=== PATIENT | male | born 1970 | race Hispanic/Latino ===

== ENCOUNTER 2019-02-04 17:34 | Inpatient (IN) | payer OTHER, SELFPAY ==
[~2019-02-04 17:34] MED LIST: Heparin 1,000 UNITS/ML VIAL ONE
[2019-02-04] MEDS ORDERED: Acetaminophen 500 MG TAB ONE (18:14)
[2019-02-04] MEDS ORDERED: Piperacillin/Tazobactam 4.5 GM VIAL ONE (18:14)
[2019-02-04 18:19] LABS: Hemoglobin 12.2 g/dL (14.0-18.0); Mean Corpuscular HGB CONC 33.2 g/dL (32.0-36.0); Mean Corpuscular Volume 84.4 fL (78.0-98.0); Mean Platelet Volume 9.7 fL (7.4-10.4); Platelet Count 311 thou/uL (130-400); RBC Distribution Width 12.2 % (11.5-14.5); Red Blood Cell (RBC) Count 4.35 mill/uL (4.70-6.10); White Blood Cell (WBC) Count 14.3 thou/uL (4.8-10.8)
--- NOTE | 2019-02-04 18:20 | RAD ---
Exam: XR Foot Lt 3 View STANDARD HISTORY: Diabetic foot ulcer with purulent drainage. Headache and chills. COMPARISON: None FINDINGS: There is amputation of the left great toe at the level of the proximal phalanx. There is also amputat ion of the second toe at the level of the metatarsal head. There is a soft tissue defect and subcutaneous emphysema seen involving the lateral subcutaneous soft tissues adjacent to the proximal aspect of the left fifth metatarsal. No adjacent osseous destruction is appreciated. No lytic or sclerotic osseous lesions are seen. There is subcutaneous soft tissue swelling about the midfoot and forefoot dorsally as well as at the plantar aspect of the forefoot. No acute fracture, dislocation, or other acute osseous abnormality is identified. IMPRESSION: 1. Soft tissue defect and subcutaneous emphysema involving the lateral subcutaneous soft tissues at t he level of the proximal fifth metatarsal. No underlying osseous destruction is seen to suggest osteomyelitis based on radiographic evaluation. However, if there is strong clinical concern for oste omyelitis, MRI left foot is recommended for further evaluation. 2. Amputation of the left great toe and second toe.
--- NOTE | 2019-02-04 18:20 | RAD ---
EXAM: CHEST ONE VIEW HISTORY: Diabetic foot ulceration with purulent drainage. COMPARISON: None FINDINGS: The cardiac silhouette and pulmonary vasculature is within normal limits. The lungs are clear. The os seous structures are intact. IMPRESSION: No acute cardiopulmonary process.
[2019-02-04 18:42] LABS: Band 8 % (5-11); Eosinophils 6 % (0-10); Lymphocytes 6 % (21-51); MDiff Complete? YES; Monocytes 4 % (0-10); Neutrophil 68 % (42-75); Platelet Morphology Comment Appears Adequate; Polychromasia SLIGHT = 2-3 cells (100X) (0-2/hpf); Reactive Lymphocytes 8 % (0-10)
[2019-02-04 18:43] LABS: ALT (SGPT) Less than 7 U/L (8-55); AST (SGOT) 10 U/L (5-34); Albumin 3.6 g/dL (3.5-5.0); Alkaline Phosphatase 77 U/L (40-110); Anion Gap 17 mmol/L (10-20); BUN (Urea Nitrogen) 13 mg/dL (8.9-20.6); Bilirubin, Total 0.6 mg/dL (0.2-1.2); Calc. Creatinine Clearance 0 mL/min (70-130); Calcium 9.2 mg/dL (7.8-10.44); Carbon Dioxide 24 mmol/L (22-29); Chloride 96 mmol/L (98-107); Estimated GFR-MDRD 82; Globulin 4.8 g/dL (2.4-3.5); Glucose 344 mg/dL (70-105); Potassium 4.6 mmol/L (3.5-5.1); Protein, Total 8.4 g/dL (6.0-8.3); Sodium 132 mmol/L (136-145)
[2019-02-04] MEDS ORDERED: Acetaminophen 325 MG TAB PO PRN (19:01)
[2019-02-04] MEDS ORDERED: Senokot S 8.6-50 MG TAB PO PRN (19:01)
[2019-02-04] MEDS ORDERED: Dextrose 50% Abboject 50 ML SYRINGE SLOW IVP PRN (19:01)
[2019-02-04] MEDS ORDERED: HumaLOG 300 UNITS/3 ML VIAL SC PRN (19:01)
[2019-02-04] MEDS ORDERED: Dextrose 5% in Water 1,000 ML IV PRN (19:01)
[2019-02-04] MEDS ORDERED: Bisacodyl 10 MG SUPP PR PRN (19:01)
[2019-02-04] MEDS ORDERED: Guaifenesin DM 100-10/5 ML UDCUP PO PRN (19:01)
[2019-02-04 19:29] LABS: Bacteria/HPF None Seen HPF (None Seen); Bilirubin Negative (Negative); Blood, Urine Trace (Negative); Clarity Clear (Clear); Glucose, Urine (Dipstick) >=1000 mg/dL (Negative); Leukocyte 250 Leu/uL (Negative); Nitrite Negative (Negative); Protein, Urine (Dipstick) 30 mg/dL (Neg-Trace); Squamous Epithelial 0-3 HPF (0-3); Urobilinogen Normal mg/dL (Less than 2)
--- NOTE | 2019-02-04 19:37 | HP ---
REASON FOR ADMISSION: Left fifth metatarsal base ulcer, likely osteomyelitis. HISTORY OF PRESENTING ILLNESS: The patient says he developed a blister on the left base of fifth metatarsal area, a blister 2 months back. He was in fact hospitalized for a week then. He was given IV antibiotics and has had wound care as well and was sent home on oral antibiotics. The patient says the ulcer never healed and in fact from last 4 to 5 days, there is increased drainage of yellowish purulent material with pressure sensation in the foot. The patient has had 2 other toes amputated on the same foot before. He has had temperature of 103 degrees on arrival here. No chest pain or palpitation. No cough or expectoration. No urinary symptoms including frequency or urgency. PAST MEDICAL AND SURGICAL HISTORY: htn, diabetes mellitus type 2, dyslipidemia, and obesity, left first great toe amputated in [place] 2 years back, and left second toe amputation done in [facility] a year back. CURRENT MEDICATIONS: 1. Metformin 1000 mg twice daily. 2. Unknown insulin 45 units subcu twice daily. ALLERGIES: NO KNOWN DRUG ALLERGIES. PERSONAL HISTORY: Does not abuse alcohol or drugs. No history of smoking. 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 FAMILY HISTORY: Mother at the age of 78 years, she has had history of COPD and was a smoker. Father in his 80s, has history of . The patient is not and has no children. CODE STATUS: Full. Power of assistant district attorney is his friend, who knows him for last 8 or 9 years. Her name is Radha Kaminski. REVIEW OF SYSTEMS: CONSTITUTIONAL: Negative for weight loss or gain, ability to conduct usual activities. SKIN: Negative for rash, itching. EYES: Negative for double vision, pain. ENT/MOUTH: Negative for nose bleeding, neck stiffness, pain, tenderness. CARDIOVASCULAR: Negative for palpitations, dyspnea on exertion, orthopnea. RESPIRATORY: Negative for shortness of breath, wheezing, cough, hemoptysis, fever or night sweats. GASTROINTESTINAL: Negative for poor appetite, abdominal pain, heartburn, nausea , vomiting, constipation, or diarrhea. GENITOURINARY: Negative for urgency, frequency, dysuria, nocturia. MUSCULOSKELETAL: Negative for pain, swelling. NEUROLOGIC/PSYCHIATRIC: Negative for anxiety, depression. ALLERGY/IMMUNOLOGIC: Negative for skin rash, bleeding tendency. PHYSICAL EXAMINATION: GENERAL: The patient is a 48-year-old male, who is currently not in any acute distress. VITAL SIGNS: Blood pressure 132/70, pulse 100 per minute, respiratory rate 18 per minute, temperature 103 degrees Fahrenheit, and saturating 97% on room air. NECK: Supple. No elevated JVD. HEENT: Eyes; extraocular muscles intact. Pupils reacting to light. Oral cavity, mucous membranes are dry. No exudates or congestion. CARDIOVASCULAR SYSTEM: S1 and S2 heard. Regular rhythm. RESPIRATORY SYSTEM: Air entry 1+ bilateral. No rales or rhonchi. ABDOMEN: Soft. Bowel sounds heard. No tenderness, rigidity, or guarding. EXTREMITIES: Left foot is in general swollen up to the ankle. He has a big ulcer measuring 4 x 6 cm around the base of left fifth metatarsal on the lateral and plantar aspect. Has a yellowish purulent material oozing from it. Likely, I can palpate his metatarsal bone. No calf tenderness. VASCULAR SYSTEM: Peripheral pulses 1+ bilateral. No ischemic ulcerations or gangrene. CENTRAL NERVOUS SYSTEM: No gross focal deficits noted. The patient is alert, awake, and oriented well. PSYCHIATRIC SYSTEM: The patient's mood is euthymic. No hallucinations or delusions. LABORATORY DATA: White count of 14, hemoglobin and hematocrit of 12 and 36, platelet count 311, MCV is 84 with 68% neutrophils. Sodium 132, serum bicarb 24 , BUN 13, creatinine 0.9, glucose 344. AST, ALT, and alkaline phosphatase within normal limits. CRP 15. Albumin 3.6. Chest x-ray done shows no acute cardiopulmonary abnormality. Left foot three-view done shows soft tissue defect and subcutaneous emphysema involving the lateral subcutaneous soft tissues at the level of the proximal fifth metatarsal. No osseous destruction was seen. CLINICAL IMPRESSION AND PLAN: The patient will be admitted to medical floor for sepsis, nonhealing left fifth metatarsal area ulcer from last 2-1/2 months with likely osteomyelitis. The patient might also have Charcot joints in his left foot. We will obtain MRI of the left foot. Consultation with Dr. Ramesh will be requested. We will keep him n.p.o. after midnight. He will be on ceftriaxone and vancomycin. We will place him on Lantus 30 units subcu twice daily along with moderate Humalog sliding scale. The patient likely is noncompliant with his medication. He does not recall the name of his insulin, although he knows he takes 45 units twice daily. He has had 2 prior amputations from last 2 years of left great toe and second toe. He is also obese and likely has peripheral neuropathy. We will obtain lipid profile in the morning and HbA1c as well. We will continue to closely monitor him on medical floor. Job ID: [id number] [facility]
[2019-02-04] MEDS ORDERED: Vancomycin HCl 1 GM in Premix Bag 1 BAG IVPB SCH (21:00)
[2019-02-04] MEDS: Insulin Glargine 30 UNITS in Pre-Filled Syringe 1 EACH SC SCH (22:29)
[2019-02-04] MEDS: cefTRIAXone\\ROCEPHIN 2 GM in Sodium Chloride 0.9% 100 ML IVPB SCH (22:30)
[2019-02-04] MEDS: Famotidine 20 MG TAB PO SCH (22:31)
[2019-02-04] MEDS: Sodium Chloride 0.9% 1,000 ML IV SCH (22:31)
[2019-02-04 22:44] VITALS: BMI 42.5
[2019-02-04] MEDS ORDERED: HYDROcodone/Acetaminophen 5/325 mg Tablet PO PRN (22:53)
[2019-02-05] MEDS ORDERED: Ketorolac Tromethamine 30 MG/ML VIAL IVP PRN (00:10)
[2019-02-05] MEDS: Sodium Chloride 0.9% 1,000 ML IV SCH (01:54)
[2019-02-05] MEDS: HumaLOG 300 UNITS/3 ML VIAL SC PRN ×2 (05:29→17:47)
[2019-02-05 05:39] LABS: #Eosinphils 0.3 thou/uL (0.0-0.7); #Lymphocytes 1.8 thou/uL (1.20-3.40); #Monocytes 1.1 thou/uL (0.11-0.59); %Basophils 0.3 % (0.0-1.0); %Eosinophils 2.4 % (0.0-10.0); %Lymphocytes 13.8 % (21.0-51.0); %Monocytes 8.2 % (0.0-10.0); %Neutrophils 75.3 % (42.0-75.0); Hemoglobin 11.4 g/dL (14.0-18.0); Mean Corpuscular HGB CONC 32.7 g/dL (32.0-36.0); Mean Corpuscular Hemoglobin 27.6 pg (27.0-31.0); Mean Corpuscular Volume 84.7 fL (78.0-98.0); Mean Platelet Volume 9.5 fL (7.4-10.4); Platelet Count 266 thou/uL (130-400); RBC Distribution Width 12.2 % (11.5-14.5); Red Blood Cell (RBC) Count 4.11 mill/uL (4.70-6.10); White Blood Cell (WBC) Count 13.3 thou/uL (4.8-10.8)
[2019-02-05 05:46] LABS: Hemoglobin A1c 13.4 % (4.0-6.0)
[2019-02-05 06:13] LABS: Anion Gap 13 mmol/L (10-20); BUN (Urea Nitrogen) 13 mg/dL (8.9-20.6); Calc. Creatinine Clearance 226 mL/min (70-130); Calcium 8.4 mg/dL (7.8-10.44); Carbon Dioxide 23 mmol/L (22-29); Cardiac Risk 6.4 (Less than 4.5); Chloride 102 mmol/L (98-107); Cholesterol 140 mg/dl (< 200 Desired); Estimated GFR-MDRD Greater than 90; Glucose 317 mg/dL (70-105); HDL Cholesterol 22 mg/dL (>60 Neg Risk); LDL Cholesterol, Calculated 99 mg/dL; Potassium 4.2 mmol/L (3.5-5.1); Sodium 134 mmol/L (136-145); Triglycerides 94 mg/dL (Less than 150)
[2019-02-05] MEDS: Famotidine 20 MG TAB PO SCH ×2 (08:53→20:39)
[2019-02-05] MEDS: Enoxaparin Sodium 40 MG/0.4 ML SYRINGE SC SCH (08:54)
[2019-02-05] MEDS: Insulin Glargine 30 UNITS in Pre-Filled Syringe 1 EACH SC SCH ×2 (08:54→20:38)
[2019-02-05] MEDS ORDERED: FLU VACC QS2019-20(6MOS UP)/PF 60 MCG/0.5 ML SYRINGE IM ONE (09:00)
[2019-02-05] MEDS ORDERED: Magnevist 469MG/ML 20 ML VIAL ONE (09:44)
[2019-02-05] MEDS ORDERED: PROPOFOL 200 MG/20 ML VIAL ONE (10:58)
[2019-02-05] MEDS ORDERED: ePHEDrine/0.9% NaCl/PF SYRINGE 50 mg/10 ml ONE (10:58)
[2019-02-05] MEDS ORDERED: Lidocaine 1% PF 5 ML VIAL ONE (10:58)
[2019-02-05] MEDS ORDERED: PHENYLEPHRINE-NS 100 MCG/ML 10 ML SYRINGE ONE (10:58)
[2019-02-05] MEDS ORDERED: Ondansetron PF 4 MG/2 ML Vial ONE (10:58)
[2019-02-05] MEDS ORDERED: traMADol HCl 50 MG TAB PO PRN ×2 (11:00)
[2019-02-05] MEDS ORDERED: Ibuprofen 600 MG TAB PO PRN (11:00)
--- NOTE | 2019-02-05 12:09 | CON ---
DATE OF CONSULTATION: 02/05/2019 HISTORY OF PRESENT ILLNESS: Desmond Cerda is a 48-year-old male, [employer] inventory associate and driver, who apparently has had a left foot diabetic wound cared for by Wound [facility]. He reported to the emergency room and was admitted on 02/04/2019. X-rays revealed soft tissue changes, but no definite osteomyelitis. He has had prior amputations of left first and second toes performed and they are well healed. One toe was amputated in [place] and the other amputated in [place]. He has been placed on intravenous antibiotics, vancomycin and ceftriaxone. The patient is a vuz-itbxejn-bjbfzyinw diabetic. Glucose of 298 this morning. Hemoglobin A1c 13.4. ALLERGIES: NONE. SOCIAL HISTORY: Tobacco, none. Alcohol, none. MEDICATIONS: At home, metformin 750 b.i.d., metoprolol 100 daily, losartan, Cozaar 50 mg daily, atorvastatin 20 mg daily, amlodipine daily, vancomycin and cefepime in the hospital. PAST SURGICAL HISTORY: Amputation of left great toe and second toe, 1 amputation was performed at [place] and the other in [place] years ago. Wounds were healed. Otherwise, no other medical problems. PHYSICAL EXAMINATION: VITAL SIGNS: Height 6 feet tall, weight 313 pounds, 42 BMI, temperature 98.9, pulse 76, blood pressure 136/80. HEENT: Unremarkable. LUNGS: Clear to auscultation. CARDIAC: Regular rate and rhythm without murmur or gallop. ABDOMEN: Soft, obese, nontender. EXTREMITIES: Palpable femoral, popliteal, and pedal pulses. Previous amputation of the left first and second toes. Wounds well healed. Lateral left foot over his mid to proximal fifth metatarsal, there is open wound. It is foul smelling with necrotic tissue. Cultures of the foot have been obtained and gram-negative rods obtained. There are inflammatory changes towards the dorsum of the foot across the midline. LABORATORY DATA: Sodium 134, potassium 4.2, BUN 13, creatinine 0.82, GFR 90. White count 13 and hemoglobin 11. ASSESSMENT/PLAN: 1. Diabetic infection, left foot. We would recommend surgical debridement and indicated procedures. He understands risks and benefits, and consents. 2. Morbid obesity. 3. Diabetes mellitus. 4. Metabolic syndrome. Job ID: [id number]
[2019-02-05] MEDS ORDERED: Fentanyl 100 MCG/2 ML VIAL ONE (13:11)
--- NOTE | 2019-02-05 13:52 | PDOC.HOSPP ---
- Subjective Encounter Date: 02/05/19 Encounter Time: 09:50 Subjective: feels better, no pain, is npo for debridement - Objective Vital Signs & Weight: Vital Signs (12 hours) Temp Pulse Resp BP BP Pulse Ox 02/05/19 11:00 99.2 F 83 16 151/89 H 93 L 02/05/19 08:58 93 L 02/05/19 07:29 98.9 F 76 18 136/80 93 L 02/05/19 04:08 98.8 F 79 16 141/84 H 97 Weight Weight 313 lb 4.8 oz Result Diagrams: 02/05/19 05:10 02/05/19 05:10 Additional Labs: Accuchecks 02/05/19 02/05/19 12:31 04:15 POC Glucose 269 H 298 H Hospitalist ROS - Medication Medications: Active Medications Generic Name Dose Route Start Last Admin Trade Name Freq PRN Reason Stop Dose Admin Enoxaparin Sodium 40 mg 02/05/19 09:00 02/05/19 08:54 Lovenox SC Not Given 0900 ORLIN Famotidine 20 mg 02/04/19 21:00 02/05/19 08:53 Pepcid PO 20 mg BID ORLIN Administration Ceftriaxone Sodium 2 gm/ 100 mls @ 200 mls/hr 02/04/19 20:00 02/04/19 22:30 Sodium Chloride IVPB 100 mls 2000 ORLIN Administration Insulin Glargine 30 units/ 0.3 mls @ 0 mls/hr 02/04/19 21:00 02/05/19 08:54 Miscellaneous Medication SC Not Given BID ORLIN Vancomycin HCl 2 gm/ Sodium 500 mls @ 250 mls/hr 02/04/19 23:59 02/05/19 08: 52 Chloride IVPB 500 mls 0800,1600,2359 ORLIN Administration Insulin Human Lispro 0 units 02/04/19 19:01 02/05/19 05:29 Humalog SC 6 unit .MODERATE SLIDING SC PRN Administration Moderate Correctional Scale - Exam General Appearance: NAD, awake alert Eye: PERRL, anicteric sclera ENT: no oropharyngeal lesions, moist mucosa Neck: supple, no JVD Heart: RRR, no murmur Respiratory: no wheezes, no rales Gastrointestinal: soft, non-tender, non-distended, normal bowel sounds Extremities: 1+ LE edema Extremities - other findings: left foot in dressing Neurological: cranial nerve grossly intact, no focal deficits Psychiatric: normal affect, A&O x 3 Hosp A/P (1) Diabetic ulcer of left foot Code(s): E11.621 - TYPE 2 DIABETES MELLITUS WITH FOOT ULCER; L97.529 - NON- PRESSURE CHRONIC ULCER OTH PRT LEFT FOOT W UNSP SEVERITY Status: Acute Qualifiers: Diabetic foot ulcer location: midfoot Diabetes mellitus type: type 2 Non- pressure ulcer stage: with bone involvement without evidence of necrosis Qualified Code(s): E11.621 - Type 2 diabetes mellitus with foot ulcer; L97.426 - Non-pressure chronic ulcer of left heel and midfoot with bone involvement without evidence of necrosis (2) Sepsis Code(s): A41.9 - SEPSIS, UNSPECIFIED ORGANISM Status: Acute Qualifiers: Sepsis type: sepsis due to unspecified organism (3) HTN (hypertension) Code(s): I10 - ESSENTIAL (PRIMARY) HYPERTENSION Status: Chronic Qualifiers: Hypertension type: essential hypertension Qualified Code(s): I10 - Essential (primary) hypertension (4) DM (diabetes mellitus), type 2, uncontrolled Code(s): E11.65 - TYPE 2 DIABETES MELLITUS WITH HYPERGLYCEMIA Status: Chronic Qualifiers: Glycemic state: with hyperglycemia Qualified Code(s): E11.65 - Type 2 diabetes mellitus with hyperglycemia (5) Obesity Code(s): E66.9 - OBESITY, UNSPECIFIED Status: Chronic Qualifiers: Obesity classification: adult class 3 (BMI >= 40) Body mass index: BMI 40.0 -44.9 - Plan on vanc and ceftriaxone for debridement today continue lantus 30 bid, metformin bid, lopressor and cozaar wound care hemostable dietary consultation
[2019-02-05] MEDS: Acetaminophen 500 MG TAB PO PRN (16:17)
--- NOTE | 2019-02-05 19:40 | OP ---
DATE OF PROCEDURE: 02/05/2019 PREOPERATIVE DIAGNOSES: Diabetes mellitus type 2, obesity, previous amputations of left first and second toes currently extensive diabetic infection with necrotic skin, subcutaneous tissue, muscle, fascia, and the lateral left foot near the proximal 5th metatarsal with undermining 6 cm plantar, medial and 3 cm plantar distal. POSTOPERATIVE DIAGNOSES: Diabetes mellitus type 2, obesity, previous amputations of left first and second toes currently extensive diabetic infection with necrotic skin, subcutaneous tissue, muscle, fascia, and the lateral left foot near the proximal 5th metatarsal with undermining 6 cm plantar, medial and 3 cm plantar distal. PROCEDURE PERFORMED: Sharp excisional resectional 10 blade debridement of skin, subcutaneous tissue, fascia, muscle, tendon with pulse irrigation (previously cultured), excellent blood supply. The lateral edge of the 5th metatarsal noted to be exposed. Wound Care arrived to place a wound VAC. Long-term prognosis is poor for this neuropathic diabetic ulcer with infection, extensive. ANESTHESIA: General LMA. DESCRIPTION OF PROCEDURE: The patient was taken to the operating room where under general LMA anesthesia, the left lower extremity was prepared with ChloraPrep and draped in routine fashion. He had abundant amount of necrotic foul-smelling gangrenous skin, subcutaneous tissue, fascia, muscle debrided sharply laterally, left foot proximally. This extended plantar proximal for about 6-8 cm beneath the calcaneus. This extended distally beneath the 5th metatarsal, plantar into the foot distally for another 3 cm. Extensive debridement undertaken. Hemostasis gained with cautery. There was excellent bleeding otherwise. All necrotic tissue was removed. No evidence of PAD. Wound pulse irrigated with 2.5 L of saline solution, then wound care team arrived to place wound VAC. The patient tolerated the procedure well. Job ID: [id number]
[2019-02-05] MEDS: Metoprolol Tartrate 25 MG TAB PO SCH (20:38)
[2019-02-05] MEDS: metFORMIN 500 MG TAB PO SCH (20:39)
[2019-02-05] MEDS: cefTRIAXone\\ROCEPHIN 2 GM in Sodium Chloride 0.9% 100 ML IVPB SCH (20:39)
[2019-02-05 23:19] LABS: Vancomycin, Trough 24.3 ug/mL
[2019-02-05] MEDS: Vancomycin HCl 1.75 GM in Sodium Chloride 0.9% 500 ML IVPB SCH (23:42)
--- NOTE | 2019-02-06 08:29 | MRI ---
MRI LEFT MID FOOT AND PROXIMAL FOREFOOT WITH AND WITHOUT IV CONTRAST: DATE: 02/05/2019. PROVIDED CLINICAL HISTORY: Diabetic ulcer. FINDINGS: There is cutaneous deficiency and prominent subcutaneous adipose tissue signal alteration superficial to the lateral aspects of the base of the 5th metatarsal compatible with the provided clinical histo ry of a diabetic wound. There is diminished signal intensity on T1 weighted sequences and increased signal intensity on fluid -sensitive sequences involving the immediately subjacent lateral 5th metatarsal base. There is signa l alteration on fluid sensitive sequences involving the remainder of the 5th metatarsal rather diffus keena sparring only the neck and head. The postcontrast images demonstrate associated contrast enhance ment throughout the 5th metatarsal sparring only the head. There is no evidence for a rim-enhancing fluid collection to suggest abscess. There is no significan t regional tenosynovial fluid. There is no regional joint effusion evident. Signal alteration invol ving the intrinsic foot musculature typical for diabetic patients without focal abnormality to sugges t infectious myositis. There is nonenhancement of the skin and subcutaneous adipose layer I the raven on of the wound compatible with devitalized tissue. Alignment appears anatomic. There is focal thickening involving the flexor hallucis longus tendon in its course subjacent to the 1st metatarsal that may reflect partial tearing or tendinosis. The dorsa l extensor and plantar flexor tendons appear otherwise intact. IMPRESSION: Findings compatible with osteomyelitis involving the 5th metatarsal as described. POS: OFF
[2019-02-06] MEDS ORDERED: Losartan 25 MG TAB PO SCH (09:00)
[2019-02-06] MEDS: metFORMIN 500 MG TAB PO SCH ×2 (09:25→17:28)
[2019-02-06] MEDS: Atorvastatin Calcium 20 MG TAB PO SCH (09:26)
[2019-02-06] MEDS: Famotidine 20 MG TAB PO SCH ×2 (09:26→19:23)
[2019-02-06] MEDS: Vancomycin HCl 1.75 GM in Sodium Chloride 0.9% 500 ML IVPB SCH ×2 (09:27→17:15)
[2019-02-06] MEDS: Metoprolol Tartrate 25 MG TAB PO SCH ×2 (09:27→19:23)
[2019-02-06] MEDS: Enoxaparin Sodium 40 MG/0.4 ML SYRINGE SC SCH (09:31)
[2019-02-06] MEDS: Insulin Glargine 30 UNITS in Pre-Filled Syringe 1 EACH SC SCH ×2 (09:31→19:24)
--- NOTE | 2019-02-06 11:33 | PRG ---
DATE OF SERVICE: 02/06/2019 Desmond Cerda is doing well today. He has a VAC on his foot. He has been afebrile overnight. His pain is well controlled. I used the outboard motorboat operator service to explain to him in detail operative findings and recommendations that he be on antibiotics for prolonged period of time. I have asked Dr. Chandler to see him to guide antibiotic therapy as he might need intravenous antibiotics as an outpatient, and I have asked the human services case manager to arrange home wound VAC outpatient arrangements at [facility]. Anticipate he will be able to be discharged home later in the week. The patient had an MRI scan of his left foot yesterday revealing findings consistent with osteomyelitis involving the fifth metatarsal . There were no obvious erosions. This was not resected. We will await Dr. Chandler' input. At this point, I do not think he needs resection of the fifth metatarsal, but may need prolonged intravenous antibiotics. We will await cultures and Dr. Chandler' input. Job ID: [id number]
--- NOTE | 2019-02-06 16:43 | PDOC.HOSPP ---
- Subjective Encounter Date: 02/06/19 Encounter Time: 10:15 Subjective: feels better, no pain in his foot has not been amb per surg adv - Objective Vital Signs & Weight: Vital Signs (12 hours) Pulse Ox 02/06/19 08:00 96 Weight Admit Weight 313 lb 4.8 oz Weight 313 lb 4.8 oz I&O: 02/05/19 02/06/19 02/07/19 06:59 06:59 06:59 Intake Total 1800 Output Total 1250 Balance 550 Result Diagrams: 02/05/19 05:10 02/05/19 05:10 Additional Labs: Accuchecks 02/06/19 02/06/19 02/05/19 11:37 04:26 19:33 POC Glucose 235 H 192 H 264 H Hospitalist ROS - Medication Medications: Active Medications Generic Name Dose Route Start Last Admin Trade Name Freq PRN Reason Stop Dose Admin Acetaminophen 1,000 mg 02/05/19 11:00 02/05/19 16:17 Tylenol PO 1,000 mg Q6H PRN Administration Moderate to Severe Pain (6-10) Atorvastatin Calcium 20 mg 02/06/19 09:00 02/06/19 09:26 Lipitor PO 20 mg DAILY ORLIN Administration Enoxaparin Sodium 40 mg 02/05/19 09:00 02/06/19 09:31 Lovenox SC 40 mg 0900 ORLIN Administration Famotidine 20 mg 02/04/19 21:00 02/06/19 09:26 Pepcid PO 20 mg BID ORLIN Administration Ceftriaxone Sodium 2 gm/ 100 mls @ 200 mls/hr 02/04/19 20:00 02/05/19 20:39 Sodium Chloride IVPB 100 mls 2000 ORLIN Administration Insulin Glargine 30 units/ 0.3 mls @ 0 mls/hr 02/04/19 21:00 02/06/19 09:31 Miscellaneous Medication SC 0.3 mls BID ORLIN Administration Vancomycin HCl 1.75 gm/ Sodium 500 mls @ 250 mls/hr 02/05/19 23:59 02/06/19 09:27 Chloride IVPB 500 mls 0800,1600,2359 ORLIN Administration Insulin Human Lispro 0 units 02/04/19 19:01 02/05/19 17:47 Humalog SC 4 unit .MODERATE SLIDING SC PRN Administration Moderate Correctional Scale Metoprolol Tartrate 25 mg 02/05/19 21:00 02/06/19 09:27 Lopressor PO Not Given BID ORLIN - Exam General Appearance: awake alert Eye: PERRL, anicteric sclera ENT: no oropharyngeal lesions, moist mucosa Neck: supple, no JVD Heart: RRR, no murmur Respiratory: no wheezes, no rales Gastrointestinal: soft, non-tender, non-distended, normal bowel sounds Extremities - other findings: left foot in wound vac Neurological: cranial nerve grossly intact, no focal deficits Psychiatric: normal affect, A&O x 3 Hosp A/P (1) Diabetic ulcer of left foot Code(s): E11.621 - TYPE 2 DIABETES MELLITUS WITH FOOT ULCER; L97.529 - NON- PRESSURE CHRONIC ULCER OTH PRT LEFT FOOT W UNSP SEVERITY Status: Acute Qualifiers: Diabetic foot ulcer location: midfoot Diabetes mellitus type: type 2 Non- pressure ulcer stage: with bone involvement without evidence of necrosis Qualified Code(s): E11.621 - Type 2 diabetes mellitus with foot ulcer; L97.426 - Non-pressure chronic ulcer of left heel and midfoot with bone involvement without evidence of necrosis (2) Sepsis Code(s): A41.9 - SEPSIS, UNSPECIFIED ORGANISM Status: Resolved Qualifiers: Sepsis type: sepsis due to unspecified organism (3) HTN (hypertension) Code(s): I10 - ESSENTIAL (PRIMARY) HYPERTENSION Status: Chronic Qualifiers: Hypertension type: essential hypertension Qualified Code(s): I10 - Essential (primary) hypertension (4) DM (diabetes mellitus), type 2, uncontrolled Code(s): E11.65 - TYPE 2 DIABETES MELLITUS WITH HYPERGLYCEMIA Status: Chronic Qualifiers: Glycemic state: with hyperglycemia Qualified Code(s): E11.65 - Type 2 diabetes mellitus with hyperglycemia (5) Obesity Code(s): E66.9 - OBESITY, UNSPECIFIED Status: Chronic Qualifiers: Obesity classification: adult class 3 (BMI >= 40) Body mass index: BMI 40.0 -44.9 - Plan on vanc and ceftriaxone had debridement 02/05 continue lantus 30 bid, metformin 1g bid, lopressor and cozaar down to 25mg daily, add glipizide 5mg daily wound care, will need outpt wound vac 1/2 blood cs likely contamination (is -ve for staph aureus, strep), await opinion MRI showed findings of osteo, for likely prolonged iv antibiotics? hemostable dietary consultation
[2019-02-06] MEDS: Acetaminophen 500 MG TAB PO PRN (19:24)
[2019-02-06] MEDS: cefTRIAXone\\ROCEPHIN 2 GM in Sodium Chloride 0.9% 100 ML IVPB SCH (19:25)
[2019-02-06 23:13] LABS: Vancomycin, Trough 25.9 ug/mL
[2019-02-07] MEDS: HumaLOG 300 UNITS/3 ML VIAL SC PRN (05:36)
[2019-02-07] MEDS ORDERED: Vancomycin 1.5 GRAM/300 ML BAG 1.5 GM in Premix Bag 1 BAG IVPB SCH (06:00)
[2019-02-07 07:27] LABS: #Eosinphils 0.4 thou/uL (0.0-0.7); #Monocytes 0.9 thou/uL (0.11-0.59); #Neutrophils 7.1 thou/uL (1.40-6.50); %Basophils 0.5 % (0.0-1.0); %Eosinophils 3.7 % (0.0-10.0); %Lymphocytes 19.2 % (21.0-51.0); %Monocytes 8.9 % (0.0-10.0); %Neutrophils 67.8 % (42.0-75.0); Hemoglobin 10.3 g/dL (14.0-18.0); Mean Corpuscular HGB CONC 32.1 g/dL (32.0-36.0); Mean Corpuscular Hemoglobin 27.8 pg (27.0-31.0); Mean Corpuscular Volume 86.8 fL (78.0-98.0); Mean Platelet Volume 9.2 fL (7.4-10.4); Platelet Count 290 thou/uL (130-400); RBC Distribution Width 12.3 % (11.5-14.5); White Blood Cell (WBC) Count 10.5 thou/uL (4.8-10.8)
[2019-02-07 07:45] LABS: Anion Gap 10 mmol/L (10-20); BUN (Urea Nitrogen) 14 mg/dL (8.9-20.6); Calc. Creatinine Clearance 191 mL/min (70-130); Calcium 8.8 mg/dL (7.8-10.44); Carbon Dioxide 31 mmol/L (22-29); Chloride 102 mmol/L (98-107); Estimated GFR-MDRD 83; Glucose 258 mg/dL (70-105); Potassium 4.5 mmol/L (3.5-5.1); Sodium 138 mmol/L (136-145)
[2019-02-07] MEDS: Enoxaparin Sodium 40 MG/0.4 ML SYRINGE SC SCH (09:00)
[2019-02-07] MEDS: Atorvastatin Calcium 20 MG TAB PO SCH (09:00)
[2019-02-07] MEDS: Famotidine 20 MG TAB PO SCH ×2 (09:00→20:23)
[2019-02-07] MEDS: metFORMIN 500 MG TAB PO SCH ×2 (09:00→17:51)
[2019-02-07] MEDS: glipiZIDE 5 MG TAB PO SCH (09:01)
[2019-02-07] MEDS: Metoprolol Tartrate 25 MG TAB PO SCH ×2 (09:01→20:23)
[2019-02-07] MEDS: Losartan 25 MG TAB PO SCH (09:01)
[2019-02-07] MEDS: Insulin Glargine 30 UNITS in Pre-Filled Syringe 1 EACH SC SCH ×2 (09:01→20:23)
--- NOTE | 2019-02-07 11:59 | PRG ---
DATE OF SERVICE: 02/07/2019 SUBJECTIVE: Mr. Vega is doing well today. I used the adjuster arbitrator phone to visit with him. The patient complains of pain in his foot, this morning refused to work with physical therapy. They will call him later. His wound VAC is changed. His wound was good with undermining 7 cm proximal to lateral from the lateral foot wound. There is granulation tissue appearing. There is no purulent discharge. The cellulitis has resolved. Temperature 99 degrees, pulse 72, blood pressure 153/95. MRI revealed osteomyelitis of the fifth metatarsal. There is no obvious clinical infection and the bone seems to be intact, but there are some radiological changes and these probably can be treated with intravenous or oral antibiotics per Dr. Chandler. We will await his opinion. Cultures of foot reveal MRSA, gram-negative billie, Streptococcus group C. He is continued on intravenous antibiotics. Blood cultures, positive beta-hemolytic strep. ASSESSMENT AND PLAN: Severe diabetic foot infection with osteomyelitis by MRI, but not appreciated clinically. Await recommendations from Infectious Disease. It is likely that he will need intravenous antibiotics and a PICC line. We will await Dr. Chandler' input. Continue wound VAC care and intravenous antibiotics. Job ID: [id number]
[2019-02-07] MEDS: Vancomycin 1.5 GRAM/300 ML BAG 1.5 GM in Premix Bag 1 BAG IVPB SCH ×2 (13:58→22:07)
--- NOTE | 2019-02-07 17:30 | CON ---
DATE OF CONSULTATION: 02/07/2019 REASON FOR CONSULTATION: Foot ulcer with osteomyelitis. HISTORY OF PRESENT ILLNESS: A 48-year-old, originally from [place], who has had a prior partial amputations of toes in the left foot and has developed a chronic ulcer in the lateral aspect of the left midfoot region. He was admitted and Dr. Ramesh did debridement. There was abundant amount of necrotic, foul-smelling, gangrenous skin, subcutaneous tissue, fascia, and muscle. This extended distally beneath the 5th metatarsal and negative pressure dressing was placed. Currently, the patient is feeling well, not much pain, probably from neuropathy. No headaches, visual symptoms, sore throat, odynophagia, or dysphagia. No cough or sputum production. No chest pain. No abdominal pain or diarrhea. Voiding without difficulty. No bleeding. No neurological symptoms. PAST MEDICAL HISTORY: 1. Type 2 diabetes. 2. Neuropathy. 3. Obesity. 4. Dyslipidemia. 5. Partial amputations of toes in the left foot. ALLERGIES: NONE. SOCIAL HISTORY: Never smoker. 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 FAMILY HISTORY: COPD. CURRENT MEDICATIONS: 1. Lipitor. 2. Dulcolax. 3. Ceftriaxone. 4. Dextrose. 5. Pepcid. 6. Glucotrol. 7. Glucagon. 8. Motrin. 9. Insulin. 10. Losartan. 11. Glucophage. 12. Lopressor. 13. Senokot. 14. Tramadol. 15. Vancomycin. PHYSICAL EXAMINATION: VITAL SIGNS: T-max 102 as recently as yesterday at 7 p.m., BP 150/95, pulse 72, respirations 16, and O2 saturation 97. SKIN: The initial photo with the oval shaped ulcer in the lateral aspect of the left midfoot region with hyperpigmentation around it, the base with necrotic tissue, and then there is a photo after debridement with a gaping wound in the lateral aspect with a healthy-appearing base. No lymphadenopathy. HEENT: Ocular movements conjugate. Oral cavity with artificial dentures. NECK: Supple. No jugular venous distention. LUNGS: Clear to auscultation and percussion. HEART: S1 and S2, regular rate. No murmurs. ABDOMEN: Soft and distended. No organomegaly. No ascites. No bladder distention. GENITAL: Normal. EXTREMITIES: No joint inflammatory activity. Pulses are 1+ in dorsalis pedis. NEUROLOGIC: Nonfocal including cognitive function. LABORATORY DATA: White cell count 14.3 down to 10.5, hemoglobin 10.3, and platelets 290. The neutrophil percentage was 75, down to 67. Creatinine 0.97. Liver profile was normal. Albumin 3.6 and glucose 344. A1c was 13.4. Lactic acid 1.8. Urinalysis with 7-10 wbc's. Microbiology with one set of blood cultures with beta-hemolytic Streptococcus, likely group C strep was present in the foot. Foot cultures also have an MRSA, Klebsiella, which is ESBL phenotype type organism and a second gram-negative billie. There is a urine culture with less than 10,000 CFUs. IMAGING STUDIES: Include a lower extremity MRI, which shows osteomyelitis of 5th metatarsal. ASSESSMENT: Type 2 diabetes with 5th metatarsal osteomyelitis and areas of necrosis soft tissue status post debridement with preservation of the area of bone involve. Vascular supply appears adequate and we will switch him to meropenem and vancomycin. PLAN: Outpatient treatment with Dapto and Invanz. PICC line placement. Discussed potential adverse reactions from treatment including skin reactions, diarrhea due to C difficile, liver, kidney, and bone marrow toxicity. The patient understood and agreed with management recommendations. Job ID: [id number]
--- NOTE | 2019-02-07 18:29 | PDOC.HOSPP ---
- Subjective Encounter Date: 02/07/19 Encounter Time: 08:00 Subjective: awake, no pain is mobilizing now - Objective Vital Signs & Weight: Vital Signs (12 hours) Temp Pulse Resp BP Pulse Ox 02/07/19 16:00 98.7 F 74 18 138/87 96 02/07/19 11:19 99.0 F 72 16 153/95 H 97 02/07/19 08:00 96 02/07/19 07:42 98.2 F 71 16 137/86 96 Weight Admit Weight 313 lb 4.8 oz Weight 313 lb 4.8 oz I&O: 02/06/19 02/07/19 02/08/19 06:59 06:59 06:59 Intake Total 1800 Output Total 1250 Balance 550 Result Diagrams: 02/07/19 07:06 02/07/19 07:06 Additional Labs: Accuchecks 02/07/19 02/07/19 02/07/19 17:10 11:22 04:29 POC Glucose 119 H 215 H 265 H 02/06/19 19:33 POC Glucose 223 H Hospitalist ROS - Medication Medications: Active Medications Generic Name Dose Route Start Last Admin Trade Name Freq PRN Reason Stop Dose Admin Acetaminophen 1,000 mg 02/05/19 11:00 02/06/19 19:24 Tylenol PO 1,000 mg Q6H PRN Administration Moderate to Severe Pain (6-10) Atorvastatin Calcium 20 mg 02/06/19 09:00 02/07/19 09:00 Lipitor PO 20 mg DAILY ORLIN Administration Enoxaparin Sodium 40 mg 02/05/19 09:00 02/07/19 09:00 Lovenox SC 40 mg 09 ORLIN Administration Famotidine 20 mg 02/04/19 21:00 02/07/19 09:00 Pepcid PO 20 mg BID ORLIN Administration Glipizide 5 mg 02/07/19 07:30 02/07/19 09:01 Glucotrol PO 5 mg DAILY-AC ORLIN Administration Insulin Glargine 30 units/ 0.3 mls @ 0 mls/hr 02/04/19 21:00 02/07/19 09:01 Miscellaneous Medication SC 0.3 mls BID ORLIN Administration Vancomycin 1.5 GRAM/300 ML BAG 300 mls @ 200 mls/hr 02/07/19 14:00 02/07/19 13:58 1.5 gm/ Device IVPB 300 mls Q8HR ORLIN Administration Insulin Human Lispro 0 units 02/04/19 19:01 02/07/19 05:36 Humalog SC 6 unit .MODERATE SLIDING SC PRN Administration Moderate Correctional Scale Losartan Potassium 25 mg 02/07/19 09:00 02/07/19 09:01 Cozaar PO 25 mg DAILY ORLIN Administration Metformin HCl 1,000 mg 02/06/19 17:00 02/07/19 17:51 Glucophage PO 1,000 mg BID-WM ORLIN Administration Metoprolol Tartrate 25 mg 02/05/19 21:00 02/07/19 09:01 Lopressor PO 25 mg BID ORLIN Administration Tramadol HCl 100 mg 02/05/19 11:00 02/06/19 19:23 Ultram PO 100 mg Q6H PRN Administration Pain 5-10 - Exam General Appearance: awake alert Eye: PERRL, anicteric sclera ENT: no oropharyngeal lesions, moist mucosa Neck: supple, no JVD Heart: RRR, no murmur Respiratory: no wheezes, no rales Gastrointestinal: soft, non-tender, non-distended, normal bowel sounds Extremities - other findings: left foot in wound vac Neurological: cranial nerve grossly intact, no focal deficits Psychiatric: normal affect, A&O x 3 Hosp A/P (1) Diabetic ulcer of left foot Code(s): E11.621 - TYPE 2 DIABETES MELLITUS WITH FOOT ULCER; L97.529 - NON- PRESSURE CHRONIC ULCER OTH PRT LEFT FOOT W UNSP SEVERITY Status: Acute Qualifiers: Diabetic foot ulcer location: midfoot Diabetes mellitus type: type 2 Non- pressure ulcer stage: with bone involvement without evidence of necrosis Qualified Code(s): E11.621 - Type 2 diabetes mellitus with foot ulcer; L97.426 - Non-pressure chronic ulcer of left heel and midfoot with bone involvement without evidence of necrosis (2) Sepsis Code(s): A41.9 - SEPSIS, UNSPECIFIED ORGANISM Status: Resolved Qualifiers: Sepsis type: sepsis due to unspecified organism (3) HTN (hypertension) Code(s): I10 - ESSENTIAL (PRIMARY) HYPERTENSION Status: Chronic Qualifiers: Hypertension type: essential hypertension Qualified Code(s): I10 - Essential (primary) hypertension (4) DM (diabetes mellitus), type 2, uncontrolled Code(s): E11.65 - TYPE 2 DIABETES MELLITUS WITH HYPERGLYCEMIA Status: Chronic Qualifiers: Glycemic state: with hyperglycemia Qualified Code(s): E11.65 - Type 2 diabetes mellitus with hyperglycemia (5) Obesity Code(s): E66.9 - OBESITY, UNSPECIFIED Status: Chronic Qualifiers: Obesity classification: adult class 3 (BMI >= 40) Body mass index: BMI 40.0 -44.9 (6) Osteomyelitis of left foot Code(s): M86.9 - OSTEOMYELITIS, UNSPECIFIED Status: Acute Qualifiers: Osteomyelitis type: chronic, with draining sinus Qualified Code(s): M86.472 - Chronic osteomyelitis with draining sinus, left ankle and foot - Plan on vanc and meropenem had debridement 02/05 continue lantus 30 bid, metformin 1g bid, lopressor and cozaar down to 25mg daily, glipizide 5mg daily wound care, picc line, will need outpt wound vac and antibiotic arrangement ( zyvox and invanz or dapto and invanz per till mar 20) wound cs are growing mrsa and polymicrobial keisha MRI showed findings of osteo, for prolonged iv antibiotics till mar 20 hemostable dietary consultation to mobilize well if ok with gen surgery
[2019-02-07] MEDS: MEROPENEM 1 GM/50 ML 1 GM in Premix Bag 1 BAG IVPB SCH (18:33)
[2019-02-08] MEDS: MEROPENEM 1 GM/50 ML 1 GM in Premix Bag 1 BAG IVPB SCH ×3 (00:30→16:05)
[2019-02-08] MEDS: Acetaminophen 500 MG TAB PO PRN ×2 (00:40→22:01)
[2019-02-08 06:18] LABS: Vancomycin, Trough 15.7 ug/mL
[2019-02-08] MEDS: Vancomycin 1.5 GRAM/300 ML BAG 1.5 GM in Premix Bag 1 BAG IVPB SCH ×3 (06:25→22:01)
--- NOTE | 2019-02-08 08:34 | PRG ---
DATE OF SERVICE: 02/08/2019 Mr. Cerda is doing well. He is afebrile. His pain is less. He has been able to walk more. He can weight bear as tolerated. His wound VAC is in place and we will review his wound tomorrow. Dr. Chandler has seen him and PICC line is ordered today. From a surgical standpoint, the patient can be discharged home tomorrow once outpatient intravenous antibiotics administration is arranged. I can see him in outpatient wound care in approximately 2 weeks or he can see me in my office. While in Wound Care, they can call me to review his wound in the next 2 week . From a surgical standpoint, the patient will be discharged home anytime when intravenous antibiotics and analgesics and wound care outpatient [facility]. Job ID: [id number]
[2019-02-08] MEDS: metFORMIN 500 MG TAB PO SCH ×2 (08:35→16:05)
[2019-02-08] MEDS: glipiZIDE 5 MG TAB PO SCH (08:35)
[2019-02-08] MEDS: Atorvastatin Calcium 20 MG TAB PO SCH (09:50)
[2019-02-08] MEDS: Metoprolol Tartrate 25 MG TAB PO SCH ×2 (09:50→20:11)
[2019-02-08] MEDS: Losartan 25 MG TAB PO SCH (09:50)
[2019-02-08] MEDS: Famotidine 20 MG TAB PO SCH ×2 (09:50→20:11)
[2019-02-08] MEDS: Enoxaparin Sodium 40 MG/0.4 ML SYRINGE SC SCH (09:51)
[2019-02-08] MEDS: Insulin Glargine 30 UNITS in Pre-Filled Syringe 1 EACH SC SCH ×2 (09:58→20:11)
--- NOTE | 2019-02-08 10:20 | SPC ---
ULTRASOUND GUIDED LEFT UPPER EXTREMITY PICC LINE PLACEMENT: HISTORY: Infection. Antibiotics are required. COMPARISON: None. EXPOSURE: 0.5 minutes. 12,413 mGy*^cm2. FINDINGS: Successful left upper kidney PICC line placement with ultrasound guidance. Trim length is 49 cm. Dist al tip is in the right atrium. Catheter flushes and aspirates without difficulty. TECHNIQUE: Consent obtained to perform a left upper shape PICC line with ultrasound guidance. Left arm was prepp ed and draped in a sterile fashion. 1% lidocaine, buffered with sodium bicarbonate was used for local anesthesia. Under ultrasound guidance, a micropuncture needle was used to cannulate the basilic vein. A 0.018 guidewire was advanced through the needle to the level of the superior vena cava. A wire was advanced into the inferior vena cava to document venous access. Wire was subsequently pulled back to the right atrium. Tract was dilated. A single lumen 5 Uzbek catheter was advanced over the wire. The wire flushes and aspirates without difficulty. 49 cm trim length. IMPRESSION: Successful left upper extremity PICC line placement with ultrasound guidance. Transcribed Date/Time: 02/08/2019 11:07 AM
--- NOTE | 2019-02-08 12:16 | PDOC.HOSPP ---
- Subjective Encounter Date: 02/08/19 Encounter Time: 10:30 Subjective: is ambulating in room, no pain - Objective Vital Signs & Weight: Vital Signs (12 hours) Temp Pulse Resp BP Pulse Ox 02/08/19 11:34 98.5 F 02/08/19 08:00 96 02/08/19 07:30 98.4 F 67 22 H 135/86 94 L 02/08/19 04:06 98.3 F 73 18 127/81 96 02/08/19 01:50 99.7 F H 02/08/19 00:36 101.3 F H 79 16 137/81 93 L Weight Admit Weight 313 lb 4.8 oz Weight 313 lb 4.8 oz I&O: 02/07/19 02/08/19 02/09/19 06:59 06:59 06:59 Intake Total 1305 Output Total 350 Balance 955 Result Diagrams: 02/07/19 07:06 02/07/19 07:06 Additional Labs: Accuchecks 02/08/19 02/08/19 02/07/19 11:38 04:12 19:58 POC Glucose 215 H 148 H 141 H 02/07/19 17:10 POC Glucose 119 H Hospitalist ROS - Medication Medications: Active Medications Generic Name Dose Route Start Last Admin Trade Name Freq PRN Reason Stop Dose Admin Acetaminophen 1,000 mg 02/05/19 11:00 02/08/19 00:40 Tylenol PO 1,000 mg Q6H PRN Administration Moderate to Severe Pain (6-10) Atorvastatin Calcium 20 mg 02/06/19 09:00 02/08/19 09:50 Lipitor PO 20 mg DAILY ORLIN Administration Enoxaparin Sodium 40 mg 02/05/19 09:00 02/08/19 09:51 Lovenox SC Not Given 09 ORLIN Famotidine 20 mg 02/04/19 21:00 02/08/19 09:50 Pepcid PO 20 mg BID ORLIN Administration Glipizide 5 mg 02/07/19 07:30 02/08/19 08:35 Glucotrol PO Not Given DAILY-AC [facility] Insulin Glargine 30 units/ 0.3 mls @ 0 mls/hr 02/04/19 21:00 02/08/19 09:58 Miscellaneous Medication SC 0.3 mls BID ORLIN Administration Vancomycin 1.5 GRAM/300 ML BAG 300 mls @ 200 mls/hr 02/07/19 14:00 02/08/19 06:25 1.5 gm/ Device IVPB 300 mls Q8HR ORLIN Administration Meropenem 1 gm/ Device 50 mls @ 100 mls/hr 02/07/19 17:00 02/08/19 09:51 IVPB 50 mls 0100,0900,1700 ORLIN Administration Insulin Human Lispro 0 units 02/04/19 19:01 02/07/19 05:36 Humalog SC 6 unit .MODERATE SLIDING SC PRN Administration Moderate Correctional Scale Losartan Potassium 25 mg 02/07/19 09:00 02/08/19 09:50 Cozaar PO 25 mg DAILY ORLIN Administration Metformin HCl 1,000 mg 02/06/19 17:00 02/08/19 08:35 Glucophage PO Not Given BID-WM ORLIN Metoprolol Tartrate 25 mg 02/05/19 21:00 02/08/19 09:50 Lopressor PO 25 mg BID ORLIN Administration Tramadol HCl 50 mg 02/05/19 11:00 02/07/19 20:23 Ultram PO 50 mg Q6H PRN Administration Pain 1-4 Tramadol HCl 100 mg 02/05/19 11:00 02/06/19 19:23 Ultram PO 100 mg Q6H PRN Administration Pain 5-10 - Exam General Appearance: NAD, awake alert Eye: PERRL, anicteric sclera ENT: no oropharyngeal lesions, moist mucosa Neck: supple, no JVD Heart: RRR, no murmur Respiratory: no wheezes, no rales Gastrointestinal: soft, non-tender, non-distended, normal bowel sounds Extremities: no cyanosis, no clubbing Neurological: cranial nerve grossly intact, no focal deficits Psychiatric: normal affect, A&O x 3 Hosp A/P (1) Diabetic ulcer of left foot Code(s): E11.621 - TYPE 2 DIABETES MELLITUS WITH FOOT ULCER; L97.529 - NON- PRESSURE CHRONIC ULCER OTH PRT LEFT FOOT W UNSP SEVERITY Status: Acute Qualifiers: Diabetic foot ulcer location: midfoot Diabetes mellitus type: type 2 Non- pressure ulcer stage: with bone involvement without evidence of necrosis Qualified Code(s): E11.621 - Type 2 diabetes mellitus with foot ulcer; L97.426 - Non-pressure chronic ulcer of left heel and midfoot with bone involvement without evidence of necrosis (2) Sepsis Code(s): A41.9 - SEPSIS, UNSPECIFIED ORGANISM Status: Resolved Qualifiers: Sepsis type: sepsis due to unspecified organism (3) HTN (hypertension) Code(s): I10 - ESSENTIAL (PRIMARY) HYPERTENSION Status: Chronic Qualifiers: Hypertension type: essential hypertension Qualified Code(s): I10 - Essential (primary) hypertension (4) DM (diabetes mellitus), type 2, uncontrolled Code(s): E11.65 - TYPE 2 DIABETES MELLITUS WITH HYPERGLYCEMIA Status: Chronic Qualifiers: Glycemic state: with hyperglycemia Qualified Code(s): E11.65 - Type 2 diabetes mellitus with hyperglycemia (5) Obesity Code(s): E66.9 - OBESITY, UNSPECIFIED Status: Chronic Qualifiers: Obesity classification: adult class 3 (BMI >= 40) Body mass index: BMI 40.0 -44.9 (6) Osteomyelitis of left foot Code(s): M86.9 - OSTEOMYELITIS, UNSPECIFIED Status: Acute Qualifiers: Osteomyelitis type: chronic, with draining sinus Qualified Code(s): M86.472 - Chronic osteomyelitis with draining sinus, left ankle and foot - Plan on vanc and meropenem had debridement 02/05 continue lantus 30 bid, metformin 1g bid, lopressor and cozaar down to 25mg daily, glipizide 5mg daily wound care, picc line, will need outpt wound vac and antibiotic arrangement ( zyvox and invanz or dapto and invanz per till mar 20) wound cs are growing mrsa and polymicrobial keisha MRI showed findings of osteo, for prolonged iv antibiotics till mar 20 hemostable dietary consultation to mobilize and weight bear per gen surgery May dc anytime if wound vac and antibiotics along wound care has been arranged.
[2019-02-08] MEDS: HumaLOG 300 UNITS/3 ML VIAL SC PRN (13:34)
[2019-02-09] MEDS: MEROPENEM 1 GM/50 ML 1 GM in Premix Bag 1 BAG IVPB SCH ×3 (00:23→16:13)
[2019-02-09] MEDS: Vancomycin 1.5 GRAM/300 ML BAG 1.5 GM in Premix Bag 1 BAG IVPB SCH ×2 (05:36→13:46)
[2019-02-09] MEDS: HumaLOG 300 UNITS/3 ML VIAL SC PRN ×2 (05:42→11:38)
[2019-02-09 07:28] VITALS: BP 125/76; TEMP 98.4
[2019-02-09] MEDS: Atorvastatin Calcium 20 MG TAB PO SCH (08:35)
[2019-02-09] MEDS: Metoprolol Tartrate 25 MG TAB PO SCH (08:35)
[2019-02-09] MEDS: glipiZIDE 5 MG TAB PO SCH (08:35)
[2019-02-09] MEDS: metFORMIN 500 MG TAB PO SCH ×2 (08:35→16:15)
[2019-02-09] MEDS: Losartan 25 MG TAB PO SCH (08:35)
[2019-02-09] MEDS: Famotidine 20 MG TAB PO SCH (08:36)
[2019-02-09] MEDS: Insulin Glargine 30 UNITS in Pre-Filled Syringe 1 EACH SC SCH (10:01)
[2019-02-09] MEDS: Enoxaparin Sodium 40 MG/0.4 ML SYRINGE SC SCH (10:02)
--- NOTE | 2019-02-09 12:07 | PRG ---
DATE OF SERVICE: 02/09/2019 Wound has been stable. He has been afebrile. His wound VAC has been approved for home use. Wound Care changes dressing and then reports the wound looks good. We would recommend that he will be discharged home on intravenous antibiotics per Dr. Chandler for osteomyelitis of left fifth metatarsal. He would undergo wound care as an outpatient wound care at [facility]. They can call me in 2 to 3 weeks to review the wound. He has tunneling 7 cm proximal lateral and this should be packed with white foam. I will see him as needed this hospitalization. Please call if necessary. Job ID: [id number]
[2019-02-09] MEDS: Acetaminophen 500 MG TAB PO PRN (16:19)
--- NOTE | 2019-02-11 16:31 | DIS ---
DATE OF ADMISSION: 02/04/2019 DATE OF DISCHARGE: 02/09/2019 DISCHARGE DISPOSITION: Home. PRIMARY DISCHARGE DIAGNOSES: Left foot diabetic ulcer with osteomyelitis around the fifth metatarsal area, sepsis secondary to above. SECONDARY DISCHARGE DIAGNOSES: Hypertension; diabetes mellitus type 2, uncontrolled; obesity. PROCEDURES DONE DURING HOSPITALIZATION: Left foot x-ray done on the day of admission showed soft tissue defect with subcutaneous emphysema involving lateral subcutaneous soft tissues at the level of the proximal fifth metatarsal. No osseous destruction was seen. MRI of left foot showed findings compatible with osteomyelitis involving the fifth metatarsal. The patient had sharp excisional resection and debridement of the diabetic ulcer. Post this procedure, he was placed in wound VAC. He has had a PICC line placed on 02/08/2019 by Interventional Radiology. Blood cultures / grew Strep anginosus. Wound cultures grew MRSA, Klebsiella pneumoniae, Streptococcus group C. He had a white count of 14 on the day of admission, discharge white count of 10; H and H of 10 and 32; platelet count 290; MCV 86; sedimentation rate was 130. Discharge BUN and creatinine of 14 and 0.9. HbA1c was 13.4. Total cholesterol 140, triglycerides 94, LDL 99. CRP was 15.4. DISCHARGE MEDICATIONS: 1. The patient will be on daptomycin and ertapenem till March 20. He will be coming to the [facility]fusion [facility]. 2. Lipitor 20 mg p.o. daily. 3. Glipizide 5 mg daily. 4. Lantus 30 units subcu twice daily. 5. Cozaar 50 mg daily. 6. Metformin 1000 mg twice daily. 7. Lopressor 25 mg twice daily. ALLERGIES: NO KNOWN DRUG ALLERGIES. INPATIENT CONSULTANTS: 1. Dr. Chandler for Infectious Disease. 2. Dr. Ramesh for General Surgery. DISCHARGE PLAN: The patient to follow up with Wound Care on the at 09:30 a.m. He needs to see his primary care physician in 1 week. BRIEF COURSE DURING HOSPITALIZATION: The patient initially came in with complaints of wounds on the left fifth metatarsal head, lateral and plantar aspect area. He has had extensive ulceration in this area. Initial x-ray and MRI findings were consistent with osteomyelitis. His diabetes was uncontrolled with HbA1c of 13. He has had consultation with Dr. Ramesh and has had wound debridement done. The patient also had consultation with Dr. Chandler for Infectious Disease. He was on broad-spectrum IV antibiotics, which all through his stay. In view of ongoing osteomyelitis and neuropathic joint, the patient will require 6 weeks of antibiotics. Case Management consultation was requested. Post debridement, the patient's wound was placed in wound VAC. He will need to continue daptomycin and ertapenem till March [address] Chandler' advice. Outpatient wound care has also been set up. He has had a wound VAC for outpatient use set up as well by Case Management. The patient was counseled with regard to medication and dietary compliance. His diabetic medications were optimized during his stay here. Prior to discharge, he is ambulating and eating well. Please note, I have seen and examined the patient on the day of discharge. Job ID: [id number]
== END 2019-02-09 17:13 | disposition home or self-care (01) | DRG 854 ==
LOC: ERS 17:34 → T4-B 18:40
PROVIDERS: ADMIT Internal Medicine; ATTEND Internal Medicine
PROC: 0LBW0ZZ Excision of Left Foot Tendon, Open Approach (ICD-10-PCS; principal; 2019-02-05)
PROC: 3E02340 Introduction of Influenza Vaccine into Muscle, Percutaneous Approach (ICD-10-PCS; 2019-02-05)
PROC: 02H633Z Insertion of Infusion Device into Right Atrium, Percutaneous Approach (ICD-10-PCS; 2019-02-08)
PROC: B548ZZA Ultrasonography of Superior Vena Cava, Guidance (ICD-10-PCS; 2019-02-08)
DX: A40.9 Streptococcal sepsis, unspecified (principal); M86.9 Osteomyelitis, unspecified; E11.621 Type 2 diabetes mellitus with foot ulcer; Z23 Encounter for immunization; L97.529 Non-pressure chronic ulcer of other part of left foot with unspecified severity; I10 Essential (primary) hypertension; E78.5 Hyperlipidemia, unspecified; E66.01 Morbid (severe) obesity due to excess calories; E11.65 Type 2 diabetes mellitus with hyperglycemia; E11.40 Type 2 diabetes mellitus with diabetic neuropathy, unspecified; E11.69 Type 2 diabetes mellitus with other specified complication; B95.4 Other streptococcus as the cause of diseases classified elsewhere; B95.62 Methicillin resistant Staphylococcus aureus infection as the cause of diseases classified elsewhere; J98.2 Interstitial emphysema; B96.1 Klebsiella pneumoniae [K. pneumoniae] as the cause of diseases classified elsewhere; Z68.41 Body mass index [BMI] 40.0-44.9, adult; Z89.412 Acquired absence of left great toe; Z89.422 Acquired absence of other left toe(s); Z79.4 Long term (current) use of insulin
CPT/HCPCS: 36415; 36416; 36569; 71045; 80048; 80053; 80061; 80202; 81003; 81015; 83036; 83605; 85025; 85652; 86140; 87040; 87070; 87077; 87086; 87149; 87186; 87205; 93005; 96365; 96367; A9579; C1751; J0696; J1642; J1650; J1815; J1885; J2001; J2185; J2405; J2543; J2704; J3010; J3370; J3490; J7050

== ENCOUNTER 2019-02-13 14:08 | Outpatient (CLI) | payer SELFPAY ==
[~2019-02-13 14:08] MED LIST changes: -Heparin 1,000 UNITS/ML VIAL ONE; +Sodium Chloride 0.9% 15 ML NEB ONE
== END 2019-02-13 14:09 | disposition home or self-care (01) ==
LOC: WCC 14:08
PROVIDERS: ATTEND Family Medicine
DX: T81.89XD Other complications of procedures, not elsewhere classified, subsequent encounter (principal); A41.9 Sepsis, unspecified organism
CPT/HCPCS: 97605; A4218

== ENCOUNTER 2019-02-16 11:35 | Outpatient (CLI) | payer SELFPAY ==
[2019-02-16] MEDS ORDERED: Sodium Chloride 0.9% 15 ML NEB ONE (15:08)
== END 2019-02-16 11:36 | disposition home or self-care (01) ==
LOC: WCC 11:35
PROVIDERS: ATTEND Family Medicine
DX: T81.89XD Other complications of procedures, not elsewhere classified, subsequent encounter (principal); A41.9 Sepsis, unspecified organism
CPT/HCPCS: A4218

== ENCOUNTER 2019-02-19 13:29 | Outpatient (CLI) | payer SELFPAY ==
[2019-02-19] MEDS ORDERED: Sodium Chloride 0.9% 15 ML NEB ONE (14:20)
== END 2019-02-19 13:30 | disposition home or self-care (01) ==
LOC: WCC 13:29
PROVIDERS: ATTEND Family Medicine
DX: T81.89XD Other complications of procedures, not elsewhere classified, subsequent encounter (principal)
CPT/HCPCS: 97605; A4218

== ENCOUNTER 2019-02-21 14:09 | Outpatient (CLI) | payer SELFPAY ==
[2019-02-21] MEDS ORDERED: Sodium Chloride 0.9% 15 ML NEB ONE (15:39)
== END 2019-02-21 14:10 | disposition home or self-care (01) ==
LOC: WCC 14:09
PROVIDERS: ATTEND Family Medicine
DX: T81.89XD Other complications of procedures, not elsewhere classified, subsequent encounter (principal)
CPT/HCPCS: 97605; A4218

== ENCOUNTER 2019-02-26 12:17 | Outpatient (CLI) | payer SELFPAY ==
[2019-02-26] MEDS ORDERED: Sodium Chloride 0.9% 15 ML NEB ONE (16:49)
== END 2019-02-26 12:18 | disposition home or self-care (01) ==
LOC: WCC 12:17
PROVIDERS: ATTEND Family Medicine
DX: T81.89XD Other complications of procedures, not elsewhere classified, subsequent encounter (principal)
CPT/HCPCS: 36416; A4218

== ENCOUNTER 2019-03-01 14:29 | Outpatient (CLI) | payer SELFPAY | END 2019-03-01 14:30 | disposition home or self-care (01) | LOC: WCC 14:29 | PROVIDERS: ATTEND Family Medicine | DX: T81.89XD Other complications of procedures, not elsewhere classified, subsequent encounter (principal) | CPT/HCPCS: 36416; 97605; A4218 ==

== ENCOUNTER 2019-03-06 11:13 | Outpatient (CLI) | payer SELFPAY | END 2019-03-06 11:14 | disposition home or self-care (01) | LOC: WCC 11:13 | PROVIDERS: ATTEND Family Medicine | DX: T81.89XD Other complications of procedures, not elsewhere classified, subsequent encounter (principal) | CPT/HCPCS: 36416; 97605; A4218 ==

== ENCOUNTER 2019-03-09 13:46 | Outpatient (CLI) | payer SELFPAY ==
[2019-03-09] MEDS ORDERED: Sodium Chloride 0.9% 15 ML NEB ONE (15:25)
== END 2019-03-09 13:47 | disposition home or self-care (01) ==
LOC: WCC 13:46
PROVIDERS: ATTEND Family Medicine
DX: T81.89XD Other complications of procedures, not elsewhere classified, subsequent encounter (principal)
CPT/HCPCS: 36416; A4218

== ENCOUNTER 2019-03-14 12:00 | Outpatient (CLI) | payer SELFPAY ==
[2019-03-14] MEDS ORDERED: Sodium Chloride 0.9% 15 ML NEB ONE (17:03)
== END 2019-03-14 12:01 | disposition home or self-care (01) ==
LOC: WCC 12:00
PROVIDERS: ATTEND Family Medicine
DX: T81.89XD Other complications of procedures, not elsewhere classified, subsequent encounter (principal)
CPT/HCPCS: A4218

== ENCOUNTER 2019-03-22 11:50 | Inpatient (IN) | payer SELFPAY ==
--- NOTE | 2019-03-22 12:35 | RAD ---
XR Ankle Lt 3 View STANDARD: 03/22/2019 12:14 PM CLINICAL INDICATION: Emergency exam COMPARISON: None. FINDINGS: Fracture:No fracture. Arthropathy:None of significance. Incidental findings:Heterotopic density seen adjacent the posterior process of the calcaneus, at the plantar aspect of the heel. There are calcaneal enthesophytes. Incidental note of arteriosclerosis. IMPRESSION: 1. No acute osseous abnormality. 2. Additional details are described above.
--- NOTE | 2019-03-22 12:37 | RAD ---
XR Foot Lt 3 View STANDARD: 03/22/2019 12:13 PM CLINICAL INDICATION: Emergency exam COMPARISON: 02/04/2019 FINDINGS: Persistent partial absence of first and second rays with similar appearing osseous irregularity at th e distal, residual second metatarsal. Heterotopic density is present adjacent the posterior process of the calcaneus. There are calcaneal enthesophytes. Soft tissue defect of the lateral midfoot is see n. IMPRESSION: 1. Grossly stable appearing partial absence of first and second ray. 2. Soft tissue defect of lateral midfoot. 3. Heterotopic density of soft tissues of the hindfoot.
[2019-03-22 12:56] LABS: #Basophils 0.1 thou/uL (0.0-0.2); #Eosinphils 0.1 thou/uL (0.0-0.7); #Lymphocytes 2.2 thou/uL (1.20-3.40); #Monocytes 0.6 thou/uL (0.11-0.59); #Neutrophils 6.3 thou/uL (1.40-6.50); %Basophils 0.8 % (0.0-1.0); %Eosinophils 1.6 % (0.0-10.0); %Lymphocytes 23.7 % (21.0-51.0); %Monocytes 6.3 % (0.0-10.0); %Neutrophils 67.7 % (42.0-75.0); Hemoglobin 13.1 g/dL (14.0-18.0); Mean Corpuscular HGB CONC 32.9 g/dL (32.0-36.0); Mean Corpuscular Hemoglobin 27.1 pg (27.0-31.0); Mean Corpuscular Volume 82.4 fL (78.0-98.0); Mean Platelet Volume 10.8 fL (7.4-10.4); Platelet Count 232 thou/uL (130-400); Red Blood Cell (RBC) Count 4.83 mill/uL (4.70-6.10); White Blood Cell (WBC) Count 9.3 thou/uL (4.8-10.8)
[2019-03-22 13:21] LABS: ALT (SGPT) 15 U/L (8-55); AST (SGOT) 18 U/L (5-34); Albumin 3.9 g/dL (3.5-5.0); Alkaline Phosphatase 105 U/L (40-110); Anion Gap 16 mmol/L (10-20); BUN (Urea Nitrogen) 15 mg/dL (8.9-20.6); Bilirubin, Total 0.5 mg/dL (0.2-1.2); Calc. Creatinine Clearance 0 mL/min (70-130); Calcium 9.3 mg/dL (7.8-10.44); Carbon Dioxide 21 mmol/L (22-29); Chloride 101 mmol/L (98-107); Estimated GFR-MDRD 77; Globulin 4.2 g/dL (2.4-3.5); Glucose 427 mg/dL (70-105); Potassium 4.5 mmol/L (3.5-5.1); Protein, Total 8.1 g/dL (6.0-8.3); Sodium 133 mmol/L (136-145)
[2019-03-22 14:17] LABS: Hemoglobin A1c 13.1 % (4.0-6.0)
[2019-03-22] MEDS ORDERED: Heparin 1,000 UNITS/ML VIAL ONE (15:15)
[2019-03-22] MEDS ORDERED: Dextrose 50% Abboject 50 ML SYRINGE SLOW IVP PRN (15:18)
[2019-03-22] MEDS ORDERED: Dextrose 5% in Water 1,000 ML IV PRN (15:18)
[2019-03-22] MEDS ORDERED: Bisacodyl 10 MG SUPP PR PRN (15:18)
[2019-03-22] MEDS ORDERED: Senokot S 8.6-50 MG TAB PO PRN (15:18)
[2019-03-22] MEDS ORDERED: Guaifenesin DM 100-10/5 ML UDCUP PO PRN (15:18)
[2019-03-22] MEDS ORDERED: Acetaminophen 325 MG TAB PO PRN (15:18)
[2019-03-22] MEDS ORDERED: HYDROcodone/Acetaminophen 5/325 mg Tablet PO PRN (15:18)
[2019-03-22] MEDS: metFORMIN 500 MG TAB PO SCH (16:30)
[2019-03-22] MEDS: HumaLOG 300 UNITS/3 ML VIAL SC PRN ×2 (16:31→21:49)
[2019-03-22] MEDS ORDERED: Non-Formulary Item 1 EACH (Insulin Glargine,Hum.Rec.Anlog [Lantus Solostar] 30 UNIT) SC SCH (21:00)
[2019-03-22] MEDS: Famotidine 20 MG TAB PO SCH (21:50)
[2019-03-22] MEDS: Insulin Glargine 30 UNITS in Pre-Filled Syringe 1 EACH SC SCH (21:50)
[2019-03-22] MEDS: Metoprolol Tartrate 25 MG TAB PO SCH (21:51)
[2019-03-22] MEDS: Atorvastatin Calcium 20 MG TAB PO SCH (22:20)
[2019-03-23 06:11] LABS: #Basophils 0.1 thou/uL (0.0-0.2); #Eosinphils 0.2 thou/uL (0.0-0.7); #Lymphocytes 3.4 thou/uL (1.20-3.40); #Monocytes 0.7 thou/uL (0.11-0.59); #Neutrophils 4.7 thou/uL (1.40-6.50); %Basophils 1.1 % (0.0-1.0); %Eosinophils 2.5 % (0.0-10.0); %Lymphocytes 37.4 % (21.0-51.0); Hemoglobin 12.6 g/dL (14.0-18.0); Mean Corpuscular HGB CONC 33.1 g/dL (32.0-36.0); Mean Corpuscular Hemoglobin 27.3 pg (27.0-31.0); Mean Corpuscular Volume 82.6 fL (78.0-98.0); Mean Platelet Volume 10.3 fL (7.4-10.4); Platelet Count 230 thou/uL (130-400); RBC Distribution Width 14.2 % (11.5-14.5); Red Blood Cell (RBC) Count 4.62 mill/uL (4.70-6.10); White Blood Cell (WBC) Count 9.2 thou/uL (4.8-10.8)
[2019-03-23 06:32] LABS: Anion Gap 12 mmol/L (10-20); BUN (Urea Nitrogen) 15 mg/dL (8.9-20.6); Calc. Creatinine Clearance 204 mL/min (70-130); Carbon Dioxide 25 mmol/L (22-29); Chloride 102 mmol/L (98-107); Estimated GFR-MDRD Greater than 90; Glucose 225 mg/dL (70-105); Potassium 4.3 mmol/L (3.5-5.1); Sodium 135 mmol/L (136-145)
[2019-03-23] MEDS: HumaLOG 300 UNITS/3 ML VIAL SC PRN ×3 (06:53→21:40)
[2019-03-23] MEDS: Metoprolol Tartrate 25 MG TAB PO SCH ×2 (08:18→20:50)
[2019-03-23] MEDS: metFORMIN 500 MG TAB PO SCH ×2 (08:18→17:50)
[2019-03-23] MEDS: Losartan 25 MG TAB PO SCH (08:18)
[2019-03-23] MEDS: Famotidine 20 MG TAB PO SCH ×2 (08:18→20:50)
[2019-03-23] MEDS: glipiZIDE 5 MG TAB PO SCH (08:18)
[2019-03-23] MEDS: Enoxaparin Sodium 40 MG/0.4 ML SYRINGE SC SCH (08:19)
[2019-03-23] MEDS: Insulin Glargine 30 UNITS in Pre-Filled Syringe 1 EACH SC SCH ×2 (08:20→20:51)
[2019-03-23] MEDS ORDERED: FLU VACC QS2019-20(6MOS UP)/PF 60 MCG/0.5 ML SYRINGE IM ONE (09:00)
--- NOTE | 2019-03-23 11:23 | HP ---
REASON FOR ADMISSION: Worsening left foot ulcer. HISTORY OF PRESENTING ILLNESS: [facility] he developed a new ulcer over the lateral heel of left foot. The patient had known left foot diabetic ulcer with osteomyelitis around the fifth metatarsal area and was hospitalized here from 02/04 to 02/09. He had debridement then for it by . No fever, cough or expectoration. Has been ambulating well. No pain or fowl smelling discharge from his ulcer. Past medical and surgical History: dm#2, htn, dyslipidemia, obesity, h/o amputation of left gr toe 2 yrs back and left 2nd toe 1 yr back. Current meds: metformin 1g bid lantus 30 sc bid cozaar 50mg daily lopressor 25mg bid lipitor 20mg daily. NKDA Personal History: no smoking, abusing alcohol or drugs Family History: mother at age 78yrs, she had copd. Father in his 80's. Code status: FULL REVIEW OF SYSTEMS: CONSTITUTIONAL: Negative for weight loss or gain, ability to conduct usual activities. SKIN: Negative for rash, itching. EYES: Negative for double vision, pain. ENT/MOUTH: Negative for nose bleeding, neck stiffness, pain, tenderness. CARDIOVASCULAR: Negative for palpitations, dyspnea on exertion, orthopnea. RESPIRATORY: Negative for shortness of breath, wheezing, cough, hemoptysis, fever or night sweats. GASTROINTESTINAL: Negative for poor appetite, abdominal pain, heartburn, nausea , vomiting, constipation, or diarrhea. GENITOURINARY: Negative for urgency, frequency, dysuria, nocturia. MUSCULOSKELETAL: Negative for pain, swelling. NEUROLOGIC/PSYCHIATRIC: Negative for anxiety, depression. ALLERGY/IMMUNOLOGIC: Negative for skin rash, bleeding tendency. PHYSICAL EXAMINATION: GENERAL: The patient is a 49-year-old male, who is currently not in any acute distress. VITAL SIGNS: Blood pressure 144/84, pulse 90 per minute, respiratory rate 18 per minute, temperature 98.9 degrees Fahrenheit, and saturating 99% on room air. NECK: Supple. No elevated JVD. HEENT: Eyes; extraocular muscles intact. Pupils reacting to light. Oral cavity , mucous membranes are moist. No exudates or congestion. CARDIOVASCULAR: S1 and S2 heard. Regular rhythm. RESPIRATORY: Air entry 1+ bilateral. No rales or rhonchi. ABDOMEN: Soft. Bowel sounds heard. No tenderness, rigidity, or guarding. EXTREMITIES: Left foot, there is an ulcer in the lateral and plantar aspect of fifth metatarsal area. The patient also has additional small ulcer measuring 2 x 3 cm near the lateral aspect of the calcaneus. No obvious foul smell or discharge noted. He is able to move all extremities. Peripheral pulses are 1+ bilateral. No ischemic ulcers or gangrene. CENTRAL NERVOUS SYSTEM: No gross focal deficits noted. The patient is alert, awake, oriented well. PSYCHIATRIC: The patient's mood is euthymic. No hallucinations or delusions. LABORATORY DATA: Left foot three-view x-ray done shows grossly stable appearance with partial absence of first and second ray. Soft tissue defect of lateral midfoot, hypertropic density of soft tissues of the hindfoot. Left ankle three view x-ray done shows no acute osseous abnormality. BUN is 15, creatinine 1.0, serum glucose is 427. HbA1c is 13. CRP 2.2. Albumin is 3.9, serum bicarb 21. Electrolytes stable. White count of 9, hemoglobin and hematocrit 13 and 39, platelet count 232 with 67% neutrophils. CLINICAL IMPRESSION AND PLAN: The patient will be admitted to medical floor for left foot ulcer with uncontrolled diabetes. Clinically, his ulcer looks to be granulating. We will obtain wound care consultation. He was apparently [facility] in view of a second ulcer developing beneath the previous ulcer. He just finished a full course of daptomycin and ertapenem until for osteomyelitis. Per wound care recommendation, we will get surgical consultation if needed. We will place him on Cipro and Flagyl for now. We will continue glipizide, Lantus, metformin as before. He will be on Cozaar, Lopressor, and Lipitor. We will continue to closely monitor him on medical floor. Job ID: [id number] [facility]
--- NOTE | 2019-03-23 15:55 | PDOC.HOSPP ---
- Subjective Encounter Date: 03/23/19 Encounter Time: 11:15 Subjective: no pain or swelling in his foot is sitting in chair - Objective Vital Signs & Weight: Vital Signs (12 hours) Temp Pulse Resp BP Pulse Ox 03/23/19 12:06 99.2 F 82 20 136/74 03/23/19 08:00 98.1 F 69 20 140/86 97 Weight Weight 309 lb 15.519 oz Result Diagrams: 03/23/19 05:33 03/23/19 05:33 Additional Labs: Accuchecks 03/23/19 03/22/19 03/22/19 11:38 21:46 15:53 POC Glucose 190 H 243 H 316 H Hospitalist ROS - Medication Medications: Active Medications Generic Name Dose Route Start Last Admin Trade Name Freq PRN Reason Stop Dose Admin Hydrocodone Bitart/Acetaminophen 1 tab 03/22/19 15:18 03/22/19 21:51 [place] 5/325 PO 1 tab Q4H PRN Administration Moderate Pain (4-6) Atorvastatin Calcium 20 mg 03/22/19 21:00 03/22/19 22:20 Lipitor PO Not Given HS ORLIN Enoxaparin Sodium 40 mg 03/23/19 09:00 03/23/19 08:19 Lovenox SC 40 mg 0900 ORLIN Administration Famotidine 20 mg 03/22/19 21:00 03/23/19 08:18 Pepcid PO 20 mg BID ORLIN Administration Glipizide 5 mg 03/23/19 07:30 03/23/19 08:18 Glucotrol PO 5 mg DAILY-AC ORLIN Administration Insulin Glargine 30 units/ 0.3 mls @ 0 mls/hr 03/22/19 21:00 03/23/19 08:20 Miscellaneous Medication SC 0.3 mls BID ORLIN Administration Vancomycin HCl 2 gm/ Sodium 500 mls @ 250 mls/hr 03/23/19 13:00 03/23/19 13: 14 Chloride IVPB 500 mls 0500,1300,2100 ORLIN Administration Insulin Human Lispro 0 units 03/22/19 15:18 03/23/19 11:36 Humalog SC 3 unit .AGGRESSIVE SLIDING PRN Administration Aggressive Correctional Scale Insulin Human Lispro 0 units 03/22/19 15:18 03/22/19 21:49 Humalog SC 3 unit .BEDTIME SLIDING SC PRN Administration Bedtime Correctional Scale Losartan Potassium 50 mg 03/23/19 09:00 03/23/19 08:18 Cozaar PO 50 mg DAILY ORLIN Administration Metformin HCl 1,000 mg 03/22/19 17:00 03/23/19 08:18 Glucophage PO 1,000 mg BID-WM ORLIN Administration Metoprolol Tartrate 25 mg 03/22/19 21:00 03/23/19 08:18 Lopressor PO 25 mg BID ORLIN Administration - Exam General Appearance: awake alert Eye: anicteric sclera ENT: no oropharyngeal lesions, moist mucosa Neck: supple, no JVD Heart: RRR, no murmur Respiratory: no wheezes, no rales Gastrointestinal: soft, non-tender, non-distended, normal bowel sounds Extremities - other findings: left heel ulcer x2, mild edema in foot, no erythema Neurological: cranial nerve grossly intact, no focal deficits Psychiatric: normal affect, A&O x 3 Hosp A/P (1) MRSA bacteremia Code(s): R78.81 - BACTEREMIA Status: Acute (2) Diabetic ulcer of left foot Code(s): E11.621 - TYPE 2 DIABETES MELLITUS WITH FOOT ULCER; L97.529 - NON- PRESSURE CHRONIC ULCER OTH PRT LEFT FOOT W UNSP SEVERITY Status: Acute Qualifiers: Diabetes mellitus type: type 2 Non-pressure ulcer stage: with bone involvement without evidence of necrosis (3) DM (diabetes mellitus), type 2, uncontrolled Code(s): E11.65 - TYPE 2 DIABETES MELLITUS WITH HYPERGLYCEMIA Status: Chronic Qualifiers: Glycemic state: with hyperglycemia (4) HLD (hyperlipidemia) Code(s): E78.5 - HYPERLIPIDEMIA, UNSPECIFIED Status: Chronic Qualifiers: Hyperlipidemia type: unspecified Qualified Code(s): E78.5 - Hyperlipidemia , unspecified (5) HTN (hypertension) Code(s): I10 - ESSENTIAL (PRIMARY) HYPERTENSION Status: Chronic Qualifiers: (6) Obesity Code(s): E66.9 - OBESITY, UNSPECIFIED Status: Chronic - Plan is on vanc and flagyl, repeat blood cs, 1/2 is growing mrsa? left heel ulcers are probing to bone per wound care, will wait for to see him on Tuesday, may keep him npo after midnight on tuesday No surgeons or cheese pancake roller available till Zack to see his foot for debridement continue glipizide, metformin, lantus, lipitor, cozaar and lopressor hemostable is not septic
[2019-03-23 16:22] VITALS: BMI 42.0
[2019-03-23] MEDS: metroNIDAZOLE 500 MG TAB PO SCH (20:50)
[2019-03-23] MEDS: Atorvastatin Calcium 20 MG TAB PO SCH (20:51)
[2019-03-24] MEDS: HumaLOG 300 UNITS/3 ML VIAL SC PRN ×3 (06:19→21:22)
[2019-03-24] MEDS: Enoxaparin Sodium 40 MG/0.4 ML SYRINGE SC SCH (08:38)
[2019-03-24] MEDS: Losartan 25 MG TAB PO SCH (08:38)
[2019-03-24] MEDS: metFORMIN 500 MG TAB PO SCH ×2 (08:38→16:02)
[2019-03-24] MEDS: metroNIDAZOLE 500 MG TAB PO SCH ×3 (08:38→21:21)
[2019-03-24] MEDS: Metoprolol Tartrate 25 MG TAB PO SCH ×2 (08:38→21:21)
[2019-03-24] MEDS: Famotidine 20 MG TAB PO SCH ×2 (08:38→21:21)
[2019-03-24] MEDS: Insulin Glargine 30 UNITS in Pre-Filled Syringe 1 EACH SC SCH ×2 (08:39→21:21)
[2019-03-24] MEDS: glipiZIDE 5 MG TAB PO SCH (08:39)
[2019-03-24 12:35] LABS: Vancomycin, Trough 19.7 ug/mL
[2019-03-24] MEDS: Atorvastatin Calcium 20 MG TAB PO SCH (21:21)
--- NOTE | 2019-03-24 22:29 | PDOC.HOSPP ---
- Subjective Encounter Date: 03/24/19 Subjective: Feels ok. No complaints. No pain. - Objective Vital Signs & Weight: Vital Signs (12 hours) Temp Pulse Resp BP BP Pulse Ox 03/24/19 20:05 98.5 F 78 16 142/60 H 97 03/24/19 11:52 98.1 F 74 20 140/87 99 Weight Admit Weight 309 lb 15.519 oz Weight 309 lb 15.519 oz I&O: 03/23/19 03/24/19 03/25/19 06:59 06:59 06:59 Intake Total 1486 Balance 1486 Result Diagrams: 03/23/19 05:33 03/23/19 05:33 Additional Labs: Accuchecks 03/24/19 03/24/19 03/24/19 21:23 16:08 11:50 POC Glucose 259 H 100 164 H 03/24/19 06:19 POC Glucose 193 H Hospitalist ROS - Medication Medications: Active Medications Generic Name Dose Route Start Last Admin Trade Name Freq PRN Reason Stop Dose Admin Hydrocodone Bitart/Acetaminophen 1 tab 03/22/19 15:18 03/22/19 21:51 [place] 5/325 PO 1 tab Q4H PRN Administration Moderate Pain (4-6) Atorvastatin Calcium 20 mg 03/22/19 21:00 03/24/19 21:21 Lipitor PO 20 mg HS ORLIN Administration Enoxaparin Sodium 40 mg 03/23/19 09:00 03/24/19 08:38 Lovenox SC 40 mg 0900 ORLIN Administration Famotidine 20 mg 03/22/19 21:00 03/24/19 21:21 Pepcid PO 20 mg BID ORLIN Administration Glipizide 5 mg 03/23/19 07:30 03/24/19 08:39 Glucotrol PO 5 mg DAILY-AC ORLIN Administration Insulin Glargine 30 units/ 0.3 mls @ 0 mls/hr 03/22/19 21:00 03/24/19 21:21 Miscellaneous Medication SC 0.3 mls BID ORLIN Administration Vancomycin HCl 2 gm/ Sodium 500 mls @ 250 mls/hr 03/23/19 13:00 03/24/19 21: 22 Chloride IVPB 500 mls 0500,1300,2100 ORLIN Administration Insulin Human Lispro 0 units 03/22/19 15:18 03/24/19 11:48 Humalog SC 3 unit .AGGRESSIVE SLIDING PRN Administration Aggressive Correctional Scale Insulin Human Lispro 0 units 03/22/19 15:18 03/24/19 21:22 Humalog SC 3 unit .BEDTIME SLIDING SC PRN Administration Bedtime Correctional Scale Losartan Potassium 50 mg 03/23/19 09:00 03/24/19 08:38 Cozaar PO 50 mg DAILY ORLIN Administration Metformin HCl 1,000 mg 03/22/19 17:00 03/24/19 16:02 Glucophage PO 1,000 mg BID-WM ORLIN Administration Metoprolol Tartrate 25 mg 03/22/19 21:00 03/24/19 21:21 Lopressor PO 25 mg BID ORLIN Administration Metronidazole 500 mg 03/23/19 21:00 03/24/19 21:21 Flagyl PO 500 mg TID ORLIN Administration - Exam Heart: RRR, no murmur, no gallops, no rubs, normal peripheral pulses Respiratory: CTAB, no wheezes, no rales, no ronchi, normal chest expansion, no tachypnea, normal percussion Gastrointestinal: soft, non-tender, non-distended, normal bowel sounds, no palpable masses, no hepatomegaly, no splenomegaly, no bruit Skin: normal turgor, no lesions, no rashes Musculoskeletal: normal tone, normal strength, no muscle wasting Musculoskeletal - other findings: Left 1,2 toe ampuation. Heel dressed. Psychiatric: normal affect, normal behavior, A&O x 3 Hosp A/P (1) Diabetic ulcer of left foot Code(s): E11.621 - TYPE 2 DIABETES MELLITUS WITH FOOT ULCER; L97.529 - NON- PRESSURE CHRONIC ULCER OTH PRT LEFT FOOT W UNSP SEVERITY Status: Acute Qualifiers: Diabetes mellitus type: type 2 Non-pressure ulcer stage: with bone involvement without evidence of necrosis (2) DM (diabetes mellitus), type 2, uncontrolled Code(s): E11.65 - TYPE 2 DIABETES MELLITUS WITH HYPERGLYCEMIA Status: Chronic Qualifiers: Glycemic state: with hyperglycemia (3) HLD (hyperlipidemia) Code(s): E78.5 - HYPERLIPIDEMIA, UNSPECIFIED Status: Chronic Qualifiers: Hyperlipidemia type: unspecified Qualified Code(s): E78.5 - Hyperlipidemia , unspecified (4) HTN (hypertension) Code(s): I10 - ESSENTIAL (PRIMARY) HYPERTENSION Status: Chronic Qualifiers: (5) MRSA bacteremia Code(s): R78.81 - BACTEREMIA Status: Acute - Plan Doing well. Will need surgical assessment on Tuesday. Continue IV Vanc.
[2019-03-25] MEDS: HumaLOG 300 UNITS/3 ML VIAL SC PRN (05:33)
[2019-03-25] MEDS: metFORMIN 500 MG TAB PO SCH ×2 (07:55→16:44)
[2019-03-25] MEDS: glipiZIDE 5 MG TAB PO SCH (07:55)
[2019-03-25] MEDS: Famotidine 20 MG TAB PO SCH ×2 (08:58→21:06)
[2019-03-25] MEDS: Metoprolol Tartrate 25 MG TAB PO SCH ×2 (08:58→21:07)
[2019-03-25] MEDS: metroNIDAZOLE 500 MG TAB PO SCH ×3 (08:58→21:06)
[2019-03-25] MEDS: Enoxaparin Sodium 40 MG/0.4 ML SYRINGE SC SCH (08:59)
[2019-03-25] MEDS: Insulin Glargine 30 UNITS in Pre-Filled Syringe 1 EACH SC SCH ×2 (08:59→21:07)
[2019-03-25] MEDS: Losartan 25 MG TAB PO SCH (09:04)
[2019-03-25 12:17] LABS: Vancomycin, Trough 24.2 ug/mL
[2019-03-25] MEDS: Vancomycin 1.5 GRAM/300 ML BAG 1.5 GM in Premix Bag 1 BAG IVPB SCH ×2 (13:22→21:08)
--- NOTE | 2019-03-25 15:21 | PDOC.HOSPP ---
- Subjective Encounter Date: 03/25/19 Encounter Time: 15:19 Subjective: Doing well. Has no complaints. Nursing reports no issues. - Objective Vital Signs & Weight: Vital Signs (12 hours) Temp Pulse Resp BP Pulse Ox 03/25/19 11:22 98.5 F 72 16 150/83 H 97 03/25/19 08:10 98.5 F 71 20 148/84 H 97 Weight Admit Weight 309 lb 15.519 oz Weight 309 lb 15.519 oz I&O: 03/24/19 03/25/19 03/26/19 06:59 06:59 06:59 Intake Total 1486 1516 Balance 1486 1516 Result Diagrams: 03/23/19 05:33 03/23/19 05:33 Additional Labs: Accuchecks 03/25/19 03/25/19 03/24/19 11:31 05:33 21:23 POC Glucose 145 H 172 H 259 H 03/24/19 16:08 POC Glucose 100 Hospitalist ROS - Medication Medications: Active Medications Generic Name Dose Route Start Last Admin Trade Name Freq PRN Reason Stop Dose Admin Hydrocodone Bitart/Acetaminophen 1 tab 03/22/19 15:18 03/22/19 21:51 [place] 5/325 PO 1 tab Q4H PRN Administration Moderate Pain (4-6) Atorvastatin Calcium 20 mg 03/22/19 21:00 03/24/19 21:21 Lipitor PO 20 mg HS ORLIN Administration Enoxaparin Sodium 40 mg 03/23/19 09:00 03/25/19 08:59 Lovenox SC 40 mg 0900 ORLIN Administration Famotidine 20 mg 03/22/19 21:00 03/25/19 08:58 Pepcid PO 20 mg BID ORLIN Administration Glipizide 5 mg 03/23/19 07:30 03/25/19 07:55 Glucotrol PO 5 mg DAILY-AC ORLIN Administration Insulin Glargine 30 units/ 0.3 mls @ 0 mls/hr 03/22/19 21:00 03/25/19 08:59 Miscellaneous Medication SC 0.3 mls BID ORLIN Administration Vancomycin HCl 1.5 gm/ Device 300 mls @ 200 mls/hr 03/25/19 13:00 03/25/19 13 :22 IVPB 300 mls 0500,1300,2100 ORLIN Administration Insulin Human Lispro 0 units 03/22/19 15:18 03/25/19 05:33 Humalog SC 3 unit .AGGRESSIVE SLIDING PRN Administration Aggressive Correctional Scale Insulin Human Lispro 0 units 03/22/19 15:18 03/24/19 21:22 Humalog SC 3 unit .BEDTIME SLIDING SC PRN Administration Bedtime Correctional Scale Losartan Potassium 50 mg 03/23/19 09:00 03/25/19 09:04 Cozaar PO 50 mg DAILY ORLIN Administration Metformin HCl 1,000 mg 03/22/19 17:00 03/25/19 07:55 Glucophage PO 1,000 mg BID-WM ORLIN Administration Metoprolol Tartrate 25 mg 03/22/19 21:00 03/25/19 08:58 Lopressor PO 25 mg BID ORLIN Administration Metronidazole 500 mg 03/23/19 21:00 03/25/19 15:16 Flagyl PO 500 mg TID ORLIN Administration - Exam General Appearance: NAD, awake alert Heart: RRR, no murmur, no gallops, no rubs, normal peripheral pulses Respiratory: CTAB, no wheezes, no rales, no ronchi, normal chest expansion, no tachypnea, normal percussion Gastrointestinal: soft, non-tender, non-distended, normal bowel sounds, no palpable masses, no hepatomegaly, no splenomegaly, no bruit Extremities - other findings: Left gr and 2nd toe amputation. Heel dressed. Skin: normal turgor Musculoskeletal: normal tone Psychiatric: normal affect, normal behavior, A&O x 3 Hosp A/P (1) Diabetic ulcer of left foot Code(s): E11.621 - TYPE 2 DIABETES MELLITUS WITH FOOT ULCER; L97.529 - NON- PRESSURE CHRONIC ULCER OTH PRT LEFT FOOT W UNSP SEVERITY Status: Acute Qualifiers: Diabetes mellitus type: type 2 Non-pressure ulcer stage: with bone involvement without evidence of necrosis (2) DM (diabetes mellitus), type 2, uncontrolled Code(s): E11.65 - TYPE 2 DIABETES MELLITUS WITH HYPERGLYCEMIA Status: Chronic Qualifiers: Glycemic state: with hyperglycemia (3) HLD (hyperlipidemia) Code(s): E78.5 - HYPERLIPIDEMIA, UNSPECIFIED Status: Chronic Qualifiers: Hyperlipidemia type: unspecified Qualified Code(s): E78.5 - Hyperlipidemia , unspecified (4) HTN (hypertension) Code(s): I10 - ESSENTIAL (PRIMARY) HYPERTENSION Status: Chronic Qualifiers: (5) MRSA bacteremia Code(s): R78.81 - BACTEREMIA Status: Acute - Plan Doing well. Will need surgical assessment on Tuesday. MRI foot to assess for osteo. Continue IV Vanc. for MRSA in the wound and the blood. Also has some strep. ID consult pending. Continue wound care. Blood sugars and BP are doing well.
[2019-03-25] MEDS: cefTRIAXone\\ROCEPHIN 2 GM in Sodium Chloride 0.9% 100 ML IVPB SCH (16:44)
[2019-03-25] MEDS: Atorvastatin Calcium 20 MG TAB PO SCH (21:07)
--- NOTE | 2019-03-25 21:55 | CON ---
DATE OF CONSULTATION: 03/25/2019 REASON FOR CONSULTATION: Persistence of osteomyelitis and following recent left foot partial amputation. HISTORY OF PRESENT ILLNESS: A 49-year-old patient whom I had seen on February 07 when he presented with a history of type 2 diabetes, neuropathy and partial amputations of toes in the left foot and a chronic ulcer in the lateral aspect of the left mid foot region. There was abundant necrotic, gangrenous skin and subcutaneous tissue, fascia, and muscle and the area of debridement was extended beneath the 5th metatarsal, which was resected and negative pressure dressing was placed. The cultures from the site yielded MRSA, Klebsiella pneumonia, another gram-negative and group C Streptococcus. He had positive blood cultures for Streptococcus anginosus and foot cultures also yielded group B Streptococcus. The patient had a PICC line inserted and the plan was to continue treatment with IV Invanz and daptomycin for a protracted period of time. The vascular supply of the area appeared adequate. No pathologies samples were submitted. The patient completed the treatment in the 2nd week of February and PICC line was removed and then on March 22, the patient was admitted, because of changes in the wound appearance that were concerning to the wound care team at [place]. The patient himself did not have any symptoms of headaches. No fever, chills or respiratory symptoms. No abdominal pain or diarrhea. No genitourinary symptoms , had not noticed anything in the in the wound area. PAST MEDICAL HISTORY: Type 2 diabetes, neuropathy, obesity, dyslipidemia, partial toe amputations, left foot. ALLERGIES: NONE. 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 Never smoker. He is originally from [place]. FAMILY HISTORY: COPD. CURRENT MEDICATIONS: 1. Lipitor. 2. Dulcolax. 3. Dextrose. 4. Lovenox. 5. Pepcid. 6. Glucotrol. 7. Insulin. 8. Metformin. 9. Metronidazole. 10. Vancomycin. PHYSICAL EXAMINATION: VITAL SIGNS: T-max 99.2, BP 150/83, pulse 72, respirations 16, and O2 saturation 97. SKIN: With the small area of stage 2 ulceration, maybe 3 in the lateral aspect of the left heel, which developed from wearing his surgical boots. He also has this area of the previous amputation in the lateral aspect of the left mid foot region. I would say about 95% granulation tissue at the base, but at the very center there is a hole that penetrates deeply into the mid/hindfoot region and I was able to probe the remnant of the fifth metatarsal with a Q-tip. The patient has peripheral IV access in the right upper extremity. No Juarez catheter. HEENT: Noncontributory. NECK: Supple. No jugular vein distention. LUNGS: Symmetric clear breath sounds. HEART: S1 and S2, regular rate. No S3 or S4. ABDOMEN: Soft, not distended or tender. No ascites. No bladder distention. No joint inflammatory activity. Pulses are 1+ in dorsalis pedis. Cap refill is normal. NEUROLOGIC: Nonfocal including cognitive function. Recollection, orientation, and speech are normal. LABORATORY DATA: White cell count is down from 9.3 to 9.2, hemoglobin 12.6, platelets 230 with a normal differential and creatinine 0.8. Sodium 135. Liver profile normal. Albumin 3.9. Microbiology with a venous sample from the left arm with MRSA alpha strep x2 different strains. Foot culture with MRSA and Enterococcus faecalis. This is similar to what he had in January, except for the Klebsiella pneumoniae, which was ESBL phenotype like organism that becka not seem to be present in the in the area anymore. IMAGING STUDIES: The ankle x-ray was not remarkable. The foot x-ray shows partial absence of 1st and 2nd ray. Soft tissue defect lateral midfoot region. ASSESSMENT: Type 2 diabetes with neuropathy and necrotic infection of left lateral midfoot region, status post surgical debridement with partial amputation of the 5th ray, now with persistence of bone exposure at the fifth ray remnant. This is a very small area of exposed bone and he does have positive cultures with the organisms discussed above including the blood culture, which is somewhat surprising since he did not have symptoms to suggest bacteremia on arrival and did not have neutrophilia or a left shift. I wonder, if this is a contaminant of the specimen rather than true bacteremia, but we will have to take it at face value in view of the nature of the bacteremia identified, very similar to the ones from the foot. We will have to unfortunately resume treatment with Rocephin and vancomycin and then transfer to the outpatient setting with a PICC line for this time at least 6 weeks and then transition to oral doxy and Augmentin for continuation of therapy for protracted period of time following completion of the initial IV phase. The end date of therapy is calculated around May 07. Weekly labs with CBC, CRP, vancomycin trough, or CPK. In his case, I think he is going to be using daptomycin instead of vancomycin, which will be easier in the outpatient setting since we will allow once daily administration. In addition to that, he will continue on Rocephin for the duration of therapy. Wound care will continue and then we will see, if he is able to close that area. He may require down the road repeat surgical procedure, if there is not closure of that 5th metatarsal remnant opening. Job ID: [id number] [facility]
[2019-03-26] MEDS: Vancomycin 1.5 GRAM/300 ML BAG 1.5 GM in Premix Bag 1 BAG IVPB SCH ×2 (05:32→21:28)
[2019-03-26] MEDS: HumaLOG 300 UNITS/3 ML VIAL SC PRN (05:40)
[2019-03-26 06:35] LABS: BUN (Urea Nitrogen) 10 mg/dL (8.9-20.6); Calc. Creatinine Clearance 216 mL/min (70-130); Estimated GFR-MDRD Greater than 90
--- NOTE | 2019-03-26 09:15 | MRI ---
MRI OF LEFT FOOT PERFORMED WITHOUT CONTRAST ENHANCEMENT: HISTORY: The patient has an open wound at the base of the 5th metatarsal. History of diabetes. COMPARISON: 02/05/2019 study. FINDINGS: There is increased STIR and decreased T1 signal change which involves more of the proximal half of th e 5th metatarsal. There are adjacent soft tissue changes. Findings are actually slightly less prono unced than they were on the prior examination. Postoperative changes related to amputation at the level of the base of the proximal phalanx of the 1 st and 2nd toes are noted. There is increased signal change within the posterior most aspect of the calcaneus in the tuberosity region. This involves more of the lateral side of the calcaneus. On the previous MRI study, this ar ea was not included in its entirety, although the signal change in the portion of the calcaneus that is seen on today and the previous exam does appear slightly increased on the current study. IMPRESSION: 1. No evidence of any soft tissue abscess. 2. Soft tissue defect along the lateral aspect of the foot. There is persistent increased signal ch carlito within the 5th metatarsal. It involves more of the proximal half of the 5th metatarsal and is s uspicious for underlying osteomyelitis, although the changes are improved as compared to the prior ex am. 3. In addition, there are edema changes along the lateral side of the calcaneus posteriorly. This i s suspicious for an underlying area of osteomyelitis in this area. POS: TPC
[2019-03-26] MEDS: Enoxaparin Sodium 40 MG/0.4 ML SYRINGE SC SCH (09:18)
[2019-03-26] MEDS: metroNIDAZOLE 500 MG TAB PO SCH ×3 (09:18→21:10)
[2019-03-26] MEDS: Losartan 25 MG TAB PO SCH (09:18)
[2019-03-26] MEDS: Metoprolol Tartrate 25 MG TAB PO SCH ×2 (09:18→21:10)
[2019-03-26] MEDS: glipiZIDE 5 MG TAB PO SCH (09:24)
[2019-03-26] MEDS: Famotidine 20 MG TAB PO SCH ×2 (09:24→21:10)
[2019-03-26] MEDS: Insulin Glargine 30 UNITS in Pre-Filled Syringe 1 EACH SC SCH ×2 (09:24→21:11)
[2019-03-26] MEDS: metFORMIN 500 MG TAB PO SCH ×2 (09:24→17:52)
[2019-03-26 13:02] LABS: Vancomycin, Trough 20.8 ug/mL
[2019-03-26] MEDS ORDERED: Vancomycin HCl 1.25 GM in Sodium Chloride 0.9% 250 ML 250 ML IVPB SCH (14:00)
--- NOTE | 2019-03-26 16:29 | SPC ---
PICC PLACEMENT ULTRASOUND-GUIDED VENOUS ACCESS: (Peripherally inserted central catheter) DATE: 03/26/2019 HISTORY: 49-year-old male with osteomyelitis of left foot requiring long-term IV antibiotics. TECHNIQUE: Catheter caliber: 5 Romanian Catheter trim length:51.5 cm Catheter lumen number:single Catheter tip location:right atrium Vein accessed:right brachial Signed, informed consent was obtained. A tourniquet was applied at the proximal aspect of the arm. Th e arm was prepped and draped in the usual sterile fashion. A 25-gauge needle was used to applied buffered lidocaine superficially. The vein was punctured with a 21-gauge micropuncture needle under u ltrasound guidance. A 0.018 inch guidewire was advanced through the micropuncture needle and into the vein. Under fluoroscopic guidance, the guidewire was advanced to the superior vena cava. The PICC was flushed and trimmed to the appropriate length. The micropuncture needle was exchanged over the guidewire for a 5 Romanian peel-away dilator sheath. The dilator was exchanged over the guidewire for t he PICC, which was then further advanced under fluoroscopy. The sheath and guidewire were removed. The PICC was flushed again and secured in place at the arm after adjustment of tip position. The scooter ent tolerated the procedure well. There was no complication. IMPRESSION: Successful placement of PICC (peripherally inserted central catheter).
[2019-03-26] MEDS ORDERED: Sodium Chloride 0.9% 10 ML ONE (17:17)
[2019-03-26] MEDS: cefTRIAXone\\ROCEPHIN 2 GM in Sodium Chloride 0.9% 100 ML IVPB SCH (17:52)
--- NOTE | 2019-03-26 18:11 | CON ---
DATE OF CONSULTATION: HISTORY OF PRESENT ILLNESS: Desmond Cerda, 49-year-old male patient who I saw previous admission and December 05 and February 05, I debrided soft tissue on his left lateral foot. He had a wound. He was treated with antibiotics as an outpatient and referred to outpatient wound care where he has been undergoing wound VAC care. He was sent to the hospital, admitted to the hospitalist service 03/22/2019 with plain x-rays, ankle x-rays, did not demonstrate any remarkable bone changes, but on 03/26/2019, this morning underwent MRI demonstrating 5th metatarsal proximal subtle change osteomyelitis. It was felt this is possibly better than previously. Dr. Chandler has seen him and a course of six weeks intravenous antibiotics recommended. PICC line has been placed. I saw the patient and on request evaluated the wound. There was granulating tissue. The bone was palpated but not immediately exposed. There may be a small focus of irregularity palpable. This was in the proximal lateral foot and tunnels up in towards the ankle about 2 cm, but there was no purulent discharge. There was some darkened skin indicative of chronic inflammation. Since being in the hospital, he has been afebrile. Blood cultures, venous, MRSA, alpha strep, enterococcus from the foot and blood. Repeat blood cultures three days ago are negative. Plan at this time would be to trial of intravenous antibiotics for 6 weeks. If this fails, he may need more aggressive surgical debridement or resection of the fifth metatarsal. Unfortunately, this result in a debridement of the proximal ankle bones and may result in some ankle instability. He is at risk for BKA in the future. His blood supply is adequate with palpable pulses. ALLERGIES: NONE. SOCIAL HISTORY: Tobacco none. Alcohol rarely. MEDICATIONS: Ceftriaxone, vancomycin in the hospital. At home, losartan, lisinopril, insulin 70/30, 60 units subcu 0700 and 1900, atorvastatin 20 mg daily, metformin 1000 mg meals, glipizide 5 mg p.o. a.c. daily, metoprolol 25 b.i.d., insulin daily. PAST SURGICAL HISTORY: Soft tissue debridement left foot as indicated above. PICC line placement this hospitalization today for intravenous antibiotics and previous amputation of left great toe and second toe performed in [place], the other in [place] years ago. PHYSICAL EXAMINATION: VITAL SIGNS: 6 feet tall, 309 pounds, 42 BMI. LUNGS: Clear to auscultation. CARDIAC: Regular rate and rhythm without murmur or gallop. ABDOMEN: Soft and nontender. EXTREMITIES: Open wound left lateral foot proximally overlying the fifth metatarsal which is palpated and not felt to be irregular. There is no cellulitis. No purulent discharge. There is granulation tissue tracking 2 cm proximally. LABORATORY DATA: White count 9, hemoglobin 12. Glucose 145. Hemoglobin A1c 13 on 03/22/2019. ASSESSMENT AND PLAN: Diabetic left foot ulceration. PLAN: PICC line, intravenous antibiotics course. I will see him in the office in 4-6 weeks. He will follow up with Dr. Chandler. We will make further recommendation based on clinical course. I will see him as needed in this hospitalization, please call if necessary. Job ID: [id number]
[2019-03-26] MEDS: Vancomycin HCl 1.25 GM in Sodium Chloride 0.9% 250 ML 250 ML IVPB SCH (18:50)
[2019-03-26] MEDS: Atorvastatin Calcium 20 MG TAB PO SCH (21:10)
--- NOTE | 2019-03-26 22:22 | PDOC.HOSPP ---
- Subjective Subjective: Doing fine. No complaints. No pain. - Objective Vital Signs & Weight: Vital Signs (12 hours) Temp Pulse Resp BP Pulse Ox 03/26/19 19:26 98.5 F 61 18 147/71 H 98 03/26/19 11:46 98.2 F 64 20 140/97 H Weight Admit Weight 309 lb 15.519 oz Weight 309 lb 15.519 oz I&O: 03/25/19 03/26/19 03/27/19 06:59 06:59 06:59 Intake Total 1516 805 Balance 1516 805 Result Diagrams: 03/23/19 05:33 03/27/19 05:59 Additional Labs: Accuchecks 03/26/19 03/26/19 03/26/19 18:04 11:05 05:41 POC Glucose 179 H 134 H 197 H Hospitalist ROS - Medication Medications: Active Medications Generic Name Dose Route Start Last Admin Trade Name Freq PRN Reason Stop Dose Admin Acetaminophen 650 mg 03/22/19 15:18 03/26/19 09:18 Tylenol PO 650 mg Q4H PRN Administration Headache/Fever/Mild Pain (1-3) Hydrocodone Bitart/Acetaminophen 1 tab 03/22/19 15:18 03/22/19 21:51 [place] 5/325 PO 1 tab Q4H PRN Administration Moderate Pain (4-6) Atorvastatin Calcium 20 mg 03/22/19 21:00 03/26/19 21:10 Lipitor PO 20 mg HS ORLIN Administration Enoxaparin Sodium 40 mg 03/23/19 09:00 03/26/19 09:18 Lovenox SC 40 mg 0900 ORLIN Administration Famotidine 20 mg 03/22/19 21:00 03/26/19 21:10 Pepcid PO 20 mg BID ORLIN Administration Glipizide 5 mg 03/23/19 07:30 03/26/19 09:24 Glucotrol PO Not Given DAILY-AC [facility] Insulin Glargine 30 units/ 0.3 mls @ 0 mls/hr 03/22/19 21:00 03/26/19 21:11 Miscellaneous Medication SC 0.3 mls BID ORLIN Administration Ceftriaxone Sodium 2 gm/ 100 mls @ 200 mls/hr 03/25/19 16:00 03/26/19 17:52 Sodium Chloride IVPB 100 mls Q24HR ORLIN Administration Vancomycin HCl 1.25 gm/ Sodium 250 mls @ 166.667 mls/hr 03/26/19 18:00 18:50 Chloride IVPB 250 mls 0200,1000,1800 ORLIN Administration Insulin Human Lispro 0 units 03/22/19 15:18 03/26/19 05:40 Humalog SC 3 unit .AGGRESSIVE SLIDING PRN Administration Aggressive Correctional Scale Insulin Human Lispro 0 units 03/22/19 15:18 03/24/19 21:22 Humalog SC 3 unit .BEDTIME SLIDING SC PRN Administration Bedtime Correctional Scale Losartan Potassium 50 mg 03/23/19 09:00 03/26/19 09:18 Cozaar PO 50 mg DAILY ORLIN Administration Metformin HCl 1,000 mg 03/22/19 17:00 03/26/19 17:52 Glucophage PO 1,000 mg BID-WM ORLIN Administration Metoprolol Tartrate 25 mg 03/22/19 21:00 03/26/19 21:10 Lopressor PO 25 mg BID ORLIN Administration Metronidazole 500 mg 03/23/19 21:00 03/26/19 21:10 Flagyl PO 500 mg TID ORLIN Administration - Exam General Appearance: NAD, awake alert Neck: supple, symmetric, no JVD, no thyromegaly, no lymphadenopathy, no carotid bruit Heart: RRR, no murmur, no gallops, no rubs, normal peripheral pulses Respiratory: CTAB, no wheezes, no rales, no ronchi, normal chest expansion, no tachypnea, normal percussion Gastrointestinal: soft, non-tender, non-distended, normal bowel sounds, no palpable masses, no hepatomegaly, no splenomegaly, no bruit Skin - other findings: Foot dressed. No additional erythema. Hosp A/P (1) Diabetic ulcer of left foot Code(s): E11.621 - TYPE 2 DIABETES MELLITUS WITH FOOT ULCER; L97.529 - NON- PRESSURE CHRONIC ULCER OTH PRT LEFT FOOT W UNSP SEVERITY Status: Acute Qualifiers: Diabetes mellitus type: type 2 Non-pressure ulcer stage: with bone involvement without evidence of necrosis (2) DM (diabetes mellitus), type 2, uncontrolled Code(s): E11.65 - TYPE 2 DIABETES MELLITUS WITH HYPERGLYCEMIA Status: Chronic Qualifiers: Glycemic state: with hyperglycemia Qualified Code(s): E11.65 - Type 2 diabetes mellitus with hyperglycemia (3) HLD (hyperlipidemia) Code(s): E78.5 - HYPERLIPIDEMIA, UNSPECIFIED Status: Chronic Qualifiers: Hyperlipidemia type: unspecified Qualified Code(s): E78.5 - Hyperlipidemia , unspecified (4) HTN (hypertension) Code(s): I10 - ESSENTIAL (PRIMARY) HYPERTENSION Status: Chronic Qualifiers: (5) MRSA bacteremia Code(s): R78.81 - BACTEREMIA Status: Acute - Plan Doing well. Will need surgical assessment on Tuesday. MRI foot positive for osteo. Continue IV Vanc. for MRSA in the wound and the blood. Also has some strep. ID consult Continue wound care. Blood sugars and BP are doing well.
[2019-03-27] MEDS: Vancomycin HCl 1.25 GM in Sodium Chloride 0.9% 250 ML 250 ML IVPB SCH (01:48)
[2019-03-27 06:33] LABS: BUN (Urea Nitrogen) 9 mg/dL (8.9-20.6); Calc. Creatinine Clearance 221 mL/min (70-130); Estimated GFR-MDRD Greater than 90
[2019-03-27] MEDS: Losartan 25 MG TAB PO SCH (11:04)
[2019-03-27] MEDS: Metoprolol Tartrate 25 MG TAB PO SCH (11:04)
[2019-03-27] MEDS: metFORMIN 500 MG TAB PO SCH (11:04)
[2019-03-27] MEDS: Famotidine 20 MG TAB PO SCH (11:05)
[2019-03-27] MEDS: Insulin Glargine 30 UNITS in Pre-Filled Syringe 1 EACH SC SCH (11:05)
[2019-03-27] MEDS: glipiZIDE 5 MG TAB PO SCH (11:05)
[2019-03-27] MEDS: metroNIDAZOLE 500 MG TAB PO SCH (11:05)
[2019-03-27] MEDS: Enoxaparin Sodium 40 MG/0.4 ML SYRINGE SC SCH (11:06)
[2019-03-27 12:00] VITALS: BP 131/83; TEMP 98.6
--- NOTE | 2019-03-27 23:57 | DIS ---
DATE OF ADMISSION: 03/22/2019 DATE OF DISCHARGE: 03/27/2019 DISCHARGE DIAGNOSES: 1. Infected diabetic foot ulcer. 2. Methicillin-resistant Staphylococcus aureus bacteremia. 3. Diabetes mellitus, uncontrolled. 4. Hypertension. 5. Hyperlipidemia. 6. Obesity. HISTORY OF PRESENT ILLNESS: This patient is a 49-year-old male with a history of chronic ulceration of the left foot related to his diabetes. 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 He was following at Wound Care when he was thought to have worsening of the ulceration on the lateral foot and the lateral heel on the left. He was sent to the emergency department, where he had antibiotics and blood cultures initiated. HOSPITAL COURSE: He was admitted to the hospital and continued on antibiotics. Blood cultures returned positive for MRSA. Wound cultures also were positive for MRSA. Therefore, he was maintained in isolation and seen in consultation by Infectious Disease and General Surgery. The bacteremia necessitated the patient have 6 weeks of IV antibiotics. Therefore, it was felt to be appropriate and reasonable to give the wound the same opportunity with the antibiotics since they would be requisite rather than proceeding with surgical intervention at this time. An MRI was obtained, which did in fact show evidence of osteomyelitis along the 5th metatarsal at the proximal half, as well as some evidence of osteomyelitis involving the lateral calcaneus, where an ulcer also exists. On that day, Dr. Chandler rather arranged the patient to have outpatient IV antibiotics with Rocephin and to have weekly labs through Case Management. With that, the patient was felt to be stable for discharge to home. PHYSICAL EXAMINATION: VITAL SIGNS: On the day of discharge, temperature is 98.6, pulse 85, respirations 20, O2 saturation 99% on room air, BP 131/83. GENERAL: He is awake and alert, pleasant, cooperative. HEART: Regular rate and rhythm. LUNGS: Clear bilaterally. ABDOMEN: Benign. EXTREMITIES: The left foot will have appropriate dressings. There was no other significant edema. DISPOSITION: He is discharged to home. His outpatient antibiotic regimen will be arranged through Dr. Chandler and will include Rocephin 2 g daily. He will also remain on his usual home medical regimen includin. 70/30 insulin 60 units b.i.d. 2. Lisinopril 20 mg b.i.d. 3. Metformin 1000 mg daily. 4. Glipizide 5 mg daily. 5. Lantus 30 units b.i.d. 6. Metoprolol 25 mg b.i.d. 7. Atorvastatin 20 mg daily. 8. Losartan 50 mg daily. ACTIVITY: As tolerated. DIET: He will remain on a diabetic diet. FOLLOWUP: He will follow up with Dr. Ramesh and Dr. Chandler and PCP of his choice, and he can return to the hospital anytime he feels the need to do so. TIME SPENT: Total time in discharge activities was 35 minutes. Job ID: [id number]
--- NOTE | 2019-03-29 05:26 | PQF ---
[employer] Professor Crystal Reports Winform ViewerDELORES CH DAVID R MD [id number] CLINICAL DOCUMENTATION CLARIFICATION FORM: POST DISCHARGE Addendum to original discharge summary date: ____ Late entry note date: __ DATE:03/29/2018 ATTN: YIN MORAES MD Please exercise your independent, professional judgment in responding to the clarification form. Clinical indicators are provided on the bottom of this form for your review Please check appropriate box(es): [ ] Sepsis [ ] Severe sepsis [ ] Septic Shock [ x ] Localized infection without sepsis [ ] Other diagnosis [ ] Unable to determine In addition, please specify: Present on Admission (POA): [ ] Yes [ ] No [ ] Unable to determine For continuity of documentation, please document condition throughout progress notes and discharge summary. Thank You. CLINICAL INDICATORS - SIGNS / SYMPTOMS / LABS MRSA bacteremia - Documented in DS on 03/27 by Mariama English He just finished a full course of daptomycin and ertapenem until 24 th for osteomyelitis - Documented in H&P on 03/22 by Keyana Sellers Status post surgical debridement with partial amputation of 5th ray - Documented in Consult note on 03/25 by Keyana Sellers The culture from the site yielded MRSA, Klebsiella Pneumonia, another gram negative and group C streptococcus - Documented in Consult note on 03/25 by Keyana Sellers Foot Culture MRSA - Documented in Microbiology RISK FACTORS Infected Diabetic ulcer foot - Documented in DS on 03/27 by Mariama English HTN DM TREATMENTS: is on Vanc and Flagyl, repeat Blood culture - Documented in Hospital PNs on by Keyana Sellers Patient had PICC line inserted and plan to continue IV Invanz and daptomycin - Documented in Consult note on 03/25 by Keyana Sellers [employer] Professor [employer] Reports Winform Viewer (This form is maintained as a part of the permanent medical record) 2014 [employer]. All Rights Reserved [email or web address] [email or web address] [not provided] MTDD
== END 2019-03-27 13:05 | disposition home or self-care (01) | DRG 638 ==
LOC: ERS 11:50 → 3SE 15:33
PROVIDERS: ADMIT Internal Medicine; ATTEND Internal Medicine
PROC: 02HV33Z Insertion of Infusion Device into Superior Vena Cava, Percutaneous Approach (ICD-10-PCS; principal; 2019-03-26)
PROC: B5181ZA Fluoroscopy of Superior Vena Cava using Low Osmolar Contrast, Guidance (ICD-10-PCS; 2019-03-26)
DX: E11.69 Type 2 diabetes mellitus with other specified complication (principal); Z68.41 Body mass index [BMI] 40.0-44.9, adult; I96 Gangrene, not elsewhere classified; M86.8X7 Other osteomyelitis, ankle and foot; E11.52 Type 2 diabetes mellitus with diabetic peripheral angiopathy with gangrene; R78.81 Bacteremia; E11.40 Type 2 diabetes mellitus with diabetic neuropathy, unspecified; E78.5 Hyperlipidemia, unspecified; E66.9 Obesity, unspecified; Z79.84 Long term (current) use of oral hypoglycemic drugs; L97.529 Non-pressure chronic ulcer of other part of left foot with unspecified severity; Z89.422 Acquired absence of other left toe(s); Z79.4 Long term (current) use of insulin; Z79.82 Long term (current) use of aspirin; B95.62 Methicillin resistant Staphylococcus aureus infection as the cause of diseases classified elsewhere; E11.621 Type 2 diabetes mellitus with foot ulcer
CPT/HCPCS: 36415; 36416; 36569; 80048; 80053; 80202; 82565; 83036; 83605; 84520; 85025; 85652; 86140; 87040; 87070; 87077; 87149; 87186; 87205; C1751; J0696; J1644; J1650; J1815; J3370; J3490; J7050